=== PATIENT | male | born 1945 | race Caucasian/White ===

== ENCOUNTER 2019-03-30 18:05 | Inpatient (IN) | payer MEDICARE, OTHER ==
[~2019-03-30] VITALS: Ht 182.9 cm; Wt 101.3 kg
[2019-03-30] MEDS ORDERED: NS 1,000 ML IV ONE (18:30)
[2019-03-30] MEDS ORDERED: ACETAMINOPHEN 325 MG TAB PO ONE (18:30)
[2019-03-30 19:06] LABS: BASO % 0.3 % (0.0-1.0); EOS % 0.1 % (0.0-3.0); HEMATOCRIT 45.2 % (42.0-52.0); HEMOGLOBIN 15.7 g/dl (13.5-17.5); LYMPH % 8.9 % (24.0-44.0); MEAN CORPUSCULAR HEMOGLOBIN 30.7 pg (27.0-33.0); MEAN CORPUSCULAR HGB CONC 34.7 g/dl (32.0-36.5); MEAN CORPUSCULAR VOLUME 88.5 fl (80.0-96.0); MONO # 1.1 10^3/uL (0.0-0.8); MONO % 9.8 % (0.0-5.0); NEUTROPHILS % 80.5 % (36.0-66.0); PLATELET COUNT, AUTOMATED 106 10^3/uL (150-450); RED BLOOD COUNT 5.11 10^6/uL (4.30-6.10); WHITE BLOOD COUNT 11.1 10^3/uL (4.0-10.0)
[2019-03-30 19:31] LABS: ERYTHROCYTE SEDIMENTATION RATE 20 mm/hr (0-20)
--- NOTE | 2019-03-30 19:33 | REPVR ---
EXAM: US Duplex Left Lower Extremity Veins, Limited EXAM DATE/TIME: 03/30/2019 6:28 PM CLINICAL HISTORY: 73 years old, male; Pain; Leg, lower; Left; Additional info: R/O dvt. TECHNIQUE: Imaging protocol: Real-time Duplex ultrasound of the Left Lower Extremity with 2-D denny scale, color Doppler flow and spectral waveform analysis. Limited exam focused on the left lower extremity veins. COMPARISON: No relevant prior studies available. FINDINGS: Left deep veins: Unremarkable. The common femoral, femoral, proximal profunda femoral and popliteal veins are patent without thrombus. Normal Doppler waveforms. Normal compressibility and/or augmentation response. Soft tissues: Unremarkable. IMPRESSION: No evidence of deep venous thrombosis in the left lower extremity. Electronically signed by: Galilea Todd On 03/30/2019 19:33:23 PM
[2019-03-30 19:47] LABS: ALBUMIN 3.3 GM/DL (3.2-5.2); BILIRUBIN,DIRECT 0.6 MG/DL (0.0-0.2); BILIRUBIN,TOTAL 1.8 MG/DL (0.2-1.0); C REACTIVE PROTEIN QUANTITATIV 27.5 MG/DL (0.00-0.30); CALCIUM LEVEL 8.1 MG/DL (8.8-10.2); CREATININE FOR GFR 1.66 MG/DL (0.70-1.30); GLOMERULAR FILTRATION RATE 43.2 (>42); POTASSIUM SERUM 3.7 MEQ/L (3.5-5.1); TOTAL PROTEIN 6.5 GM/DL (6.4-8.2)
[2019-03-30] MEDS ORDERED: ceFAZolin SOD 1 GM in D5W MINI-BAG PLUS 50 ML IV ONE (20:00)
[2019-03-30] MEDS ORDERED: NEUR300C PO (20:29)
[2019-03-30] MEDS ORDERED: NAPR-885 PO (20:29)
[2019-03-30] MEDS ORDERED: FLOM0.4C39 PO (20:29)
[2019-03-30] MEDS ORDERED: BRIL90TA PO (20:29)
[2019-03-30] MEDS ORDERED: PRAV40TA2 PO (20:29)
[2019-03-30] MEDS ORDERED: AMBI10TA PO (20:29)
[2019-03-30] MEDS ORDERED: FISH1000 PO (20:29)
[2019-03-30] MEDS ORDERED: OMEP40CA2 PO (20:29)
[2019-03-30] MEDS ORDERED: METO25TA4 PO (20:29)
[2019-03-30] MEDS ORDERED: ASPI81TA26 PO (20:29)
--- NOTE | 2019-03-30 22:22 | REP ---
Left tibia-fibula four views History: Cellulitis There is no acute fracture or dislocation. The joint spaces are normal in appearance. Impression: There is no acute fracture or dislocation. Electronically Signed by Mayur Livingston MD 03/30/2019 10:14 P
--- NOTE | 2019-03-30 22:24 | REP ---
Left foot two views History: Cellulitis There is no acute fracture or dislocation. The joint spaces are normal in appearance. Impression: There is no acute fracture or dislocation. Electronically Signed by Mayur Livingston MD 03/30/2019 10:16 P
[2019-03-30] MEDS ORDERED: FLON1SPR NARES (22:38)
[2019-03-30] MEDS ORDERED: ESSETAB4 PO (22:38)
[2019-03-30] MEDS ORDERED: VANCOMYCIN HCL 1,000 MG, VIAL MATE ADAPTER 1 EACH in D5W 250 ML IV ONE (23:00)
--- NOTE | 2019-03-30 23:26 | HPEPDOC ---
General Date of Admission 03/30/2019 Date of Service: Mar 30, 2019 Other Providers Primary care provider: [facility] Attending Physician: SONIA CABRERA MD Chief Complaint The patient is a 73-year-old male admitted with a reason for visit of Skin Problem. Source: Patient, Old records Exam Limitations: No limitations Associated Symptoms: Chills, Loss of appetite, Rash, Weakness History of Present Illness Mr. Espinoza is a 73-year-old male who presents to [facility]'s Emergency Department with a pain left leg. He states that he thinks he stubbed his toe about a week ago. By Monday night/ morning he started to notice a "hot" painful sensation along his left leg. As long as he kept his leg still the pain was rated at a 4/10. If he would put any of his weight on his leg the pain would be at maximum. By he noticed the redness developing along his left lower leg. He thinks he stubbed his toe inside. He does not recall noticing any ticks on his body and he had not been outside in the [place]. He has been using Aleve and has been sleeping more over the last 2-3 days. He denies using ice packs of soothing lotions. He thinks that his left leg is somewhat swollen and it has a mild numb sensation. He does report chills and subjective fevers, but did not record his temperature. No night sweats. He is not incontinent of urine although he does state that it is painful to urinate and he has to strain. He has a history of BPH. He denies dysuria. He has not had a bowel movement, but states that it is because he has not been eating or drinking all that much. Food is unappetizing. He does not have difficulty or painful swallowing. He does feel weak, but denies falls, dizziness, or lightheadedness. He states that he feels "funky." Incidentally, patient reports that he had a heart attack 3 months ago while he was at the [facility] for a regular appointment. He states that he did not feel right and alerted a nurse. He underwent PCI via his right forearm with one stent placed at [place]. He is unsure of the physician who performed the procedure. He has since followed up at the [facility]. Emergency Department evaluation revealed stable vital signs. He has a mild neutrophilic leukocytosis of 11.1. Lactic acid is normal at 2. Creatinine is elevated at 1.66. Prior values from years ago were normal. Appears to have an indirect hyperbilirubinemia of 1.2. CRP is elevated at 27.5. Blood cultures are pending. Hospitalist service was consulted and patient was admitted for further medical management. Home Medications Scheduled Aspirin (Aspirin EC) 81 Mg Tablet.dr, 81 MG PO DAILY, (Reported) Gabapentin (Neurontin) 300 Mg Capsule, 300 MG PO QHS, (Reported) Metoprolol Tartrate (Metoprolol Tartrate) 25 Mg Tablet, 25 MG PO BID, (Reported) Multivitamin with Folic Acid (One Daily Multivitamin Tablet) 400 Mcg Tablet, 1 TAB PO DAILY, (Reported) [place]-3 Fatty Acids/Fish Oil (Fish Oil 1,000 mg Capsule) 1 Each Capsule, 2,000 MG PO BID, (Reported) Omeprazole (Omeprazole) 40 Mg Capsule.dr, 40 MG PO DAILY, (Reported) Pravastatin Sodium (Pravastatin Sodium) 40 Mg Tablet, 40 MG PO QHS, (Reported) Tamsulosin HCl (Flomax) 0.4 Mg Capsule, 0.4 MG PO DAILY, (Reported) Ticagrelor Base (Brilinta) 90 Mg Tablet, 90 MG PO BID, (Reported) Zolpidem Tartrate (Ambien) 10 Mg Tablet, 10 MG PO QHS, (Reported) Scheduled PRN Fluticasone Propionate (Flonase Allergy Relief) 9.9 Ml [place].susp, 1 SPRAY NARES QHS PRN for CONGESTION, (Reported) Naproxen (Naproxen) 500 Mg Tablet, 500 MG PO DAILY PRN for PAIN OR FEVER, (Reported) Allergies Coded Allergies: No Known Allergies (Unverified , 03/30/19) Past Medical History Medical History 1. CAD s/p PCI x1 stent 2. GERD 3. DLP 4. BPH 5. Insomnia Surgical History 1. PCI x1 stent 2. Cholecystectomy 3. Right hand Dupuytren's contracture 4. Left shoulder distal clavicle excision Family History Father: , 77, heart disease Mother: , 89, lung cancer Siblings - Sisters: x2, , 50 (cancer), 60 (recurrence of polio) Social History * Smoker: former Smoker (32 pack year history; started smoking at age 12; quit at age 44) Alcohol: Denies Drugs: denies Patient lives independently without the use of assist devices. 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 He is . He has two adult sons who are alive and healthy. He has no pets in the home. He is a former smoke, starting at age 12 and quitting at age 44. He used to smoke 1.5 packs per day. He denies EtOH use. He does not use illicit drugs. A-FIB/CHADSVASC A-FIB History Current/History of A-Fib/PAF?: No Review of Systems Constitutional: Reports: Chills, Fever (subjective), Weakness; Denies: Night Sweats Eyes: Denies: Vision change, Conjunctivae inflammation, Eyelid inflammation ENT: Reports: Other Symptoms (decreased appetite); Denies: Head Aches, Dysphagia, Sinus Congestion, Post Nasal Drip, Sore Throat, Epistaxis Skin: Reports: Rash (left leg), Bruising (left leg) Pulmonary: Reports: Dyspnea (with minimal exertion); Denies: Cough, Pleuritic Chest Pain Cardiovascular: Reports: Edema (left leg); Denies: Chest Pain, Palpitations, Orthopnea, Paroxysmal Noc. Dyspnea, Lt Headedness Gastrointestinal: Reports: Constipation (from decreased appetite); Denies: Nausea, Vomiting, Abdominal Pain, Diarrhea, Melena, Hematochezia Genitourinary: Reports: Other Symptoms (difficulty initiating urinary stream); Denies: Dysuria, Frequency, Incontinence, Hematuria, Retention Hematologic: Reports: Bruising (left leg) Musculoskeletal: Reports: Leg Pain (left leg); Denies: Neck Pain, Back Pain, Joint Pain, Muscle Pain Neurological: Reports: Weakness, Numbness (left leg) Physical Examination General Exam: Positive: Alert, Cooperative, Other (hesitant in speech) Eye Exam: Positive: PERRLA, Conjunctiva & lids normal, EOMI, Other Eye Symptoms (wears spectacles); Negative: Sclera icteric, Ptosis ENT Exam: Positive: Atraumatic, Mucous membr. moist/pink, Pharynx Normal, Tongue Midline, Nares Patent; Negative: Pharyngeal Edema Neck Exam: Positive: Supple, +2 carotid pulse wo bruit; Negative: JVD, thyromegaly, Lymphadenopathy Chest Exam: Positive: Clear to auscultation, Normal air movement; Negative: Rales, Rhonchi, Wheezing, Diminished Heart Exam: Positive: Rate Normal, Regular Rhythm, Normal S1, Normal S2; Negative: Gallops, Murmurs, Rubs Abdomen Exam: Positive: BS Hypoactive, Soft, Other (round, no guarding, no rebound); Negative: Tenderness, Hepatospenomegaly, Mass, Hernia Extremity Exam: Positive: Edema (mild trace edema, LLE), Normal pulses, Tenderness (to palpation), Other (extensive ecchymoses noted along anterior varela of LLE with surrounding spreading erythema circumferentially around LLE extending up into medial and lateral thigh; no abnormality noted to toe digits, no abrasions); Negative: Clubbing, Cyanosis Skin Exam: Positive: Rash (as noted above; no drainage); Negative: Nl turgor and temperature (LLE warm to the palpation) Neuro Exam: Negative: Normal Speech (hesitant, apprehensive speech) Other physical findings 1. Left lower extremity duplex ultrasound - No evidence of deep venous thrombosis in the left lower extremity. 2. Left tibia/fibula x-ray - No evidence of deep venous thrombosis in the left lower extremity. 3. Left AP/lateral foot x-ray - There is no acute fracture or dislocation. Vital Signs Vital Signs Date Time Temp Pulse Resp B/P (MAP) Pulse Ox O2 Delivery O2 Flow Rate FiO2 03/30/19 20:44 96.8 73 20 117/60 (79) 96 Room Air Height (in): 72 Weight (kg): 102.27 BMI (kg): 30.6 Laboratory Data Labs 24H Laboratory Tests 2 03/30/19 18:44: Immature Granulocyte % (Auto) 0.4, White Blood Count 11.1H, Red Blood Count 5.11, Hemoglobin 15.7, Hematocrit 45.2, Mean Corpuscular Volume 88.5, Mean Corpuscular Hemoglobin 30.7, Mean Corpuscular Hemoglobin Concent 34.7, Red Cell Distribution Width 11.7, Platelet Count 106L, Neutrophils (%) (Auto) 80.5H, Lymphocytes (%) (Auto) 8.9L, Monocytes (%) (Auto) 9.8H, Eosinophils (%) (Auto) 0.1, Basophils (%) (Auto) 0.3, Neutrophils # (Auto) 9.0H, Lymphocytes # (Auto) 1.0L, Monocytes # (Auto) 1.1H, Eosinophils # (Auto) 0.0, Basophils # (Auto) 0.0, Nucleated Red Blood Cells % (auto) 0.0, Erythrocyte Sedimentation Rate 20, Anion Gap 12, Glomerular Filtration Rate 43.2, Lactic Acid Level 2.0, Calcium Level 8.1L, Aspartate Amino Transf (AST/SGOT) 46H, Alanine Aminotransferase (ALT/SGPT) 33, Alkaline Phosphatase 69, Total Bilirubin 1.8H, Direct Bilirubin 0.6H, C- Reactive Protein, Quantitative 27.50H, Total Protein 6.5, Albumin 3.3, Albumin/Globulin Ratio 1.03 CBC/BMP Laboratory Tests 03/30/19 18:44 Red Blood Count 5.11, Mean Corpuscular Volume 88.5, Mean Corpuscular Hemoglobin 30.7, Mean Corpuscular Hemoglobin Concent 34.7, Red Cell Distribution Width 11.7, Neutrophils (%) (Auto) 80.5 H, Lymphocytes (%) (Auto) 8.9 L, Monocytes (%) (Auto) 9.8 H, Eosinophils (%) (Auto) 0.1, Basophils (%) (Auto) 0.3, Neutrophils # (Auto) 9.0 H, Lymphocytes # (Auto) 1.0 L, Monocytes # (Auto) 1.1 H, Eosinophils # (Auto) 0.0, Basophils # (Auto) 0.0 Microbiology Microbiology 03/30/19 Blood Culture, Received Pending 03/30/19 Blood Culture, Received Pending Plan / VTE VTE Prophylaxis Ordered?: Yes (TEDs, ASA, Brilinta) Plan Plan 1. Left leg pain 2/2 cellulitis with lymphangitis R/O necrotizing fasciitis Aggressive antibiotic therapy with Vancomycin and Zosyn (empirically treating for necrotizing fasciitis; suspicious physical examination) MRI LLE femur and tibia/fibula Blood cultures pending Procalcitonin ordered NS @ 125 mLs/hr Monitor labs and VS Elevated CRP; ordered ESR Tylenol and Percocet as needed for pain control 2. Acute kidney injury 2/2 dehydration NS @ 125 mLs/hr Monitor daily labs 3. CAD s/p PCI x1 stent Continue ASA and Brilinta Continue Metoprolol, Pravastatin PCU monitoring (without telemetry for the time-being) Patient was taking NSAIDs at home; this has been discouraged as it puts patient at increased risk of bleeding since he is on DAPT 4. BPH Continue Tamsulosin Disposition Admit: PCU Anticipated hospitalization: 2 nights IVF: Initiate (NS @ 100 mLs/hr) Diet: Continue Current (2g sodium) Activity: Continue Current (bedrest with bathroom privileges) Therapy: PT Medications: Start Antibiotics (Vancomycin 1gm IV, Zosyn 4.5mg IV Q8H) Diagnostics: Check Labs, Repeat Labs in AM, Obtain Cultures (blood), MRI (LLE - femur, tibia/fibula) Anticipated Discharge: Home GME ATTESTATION GME ATTESTATION My faculty preceptor for this patient encounter was physically present during the encounter and was fully available. All aspects of the patient interview, examination, medical decision making process, and medical care plan development were reviewed and approved by the faculty preceptor. The faculty preceptor is aware and concurs with the plan as stated in the body of this note and will attest to such by his/her cosignature. ATTENDING NOTE ATTENDING ATTESTATION: I performed a history and physical examination of the patient and discuss the management with the resident/INFORMATION TECHNOLOGY ARCHITECT. I reviewed the resident's note and agree with the documented findings and plan of care. THOMAS GILLESPIE DO Mar 30, 2019 23:26 SONIA CABRERA MD Mar 31, 2019 01:37
[2019-03-30] MEDS ORDERED: FLUTICASONE PROP 0.05% NASAL SPRAY 16 GM (FLONASE) NARES PRN (23:30)
[2019-03-30] MEDS: GABAPENTIN 300 MG CAP PO SCH (23:40)
[2019-03-30] MEDS: PRAVASTATIN 20 MG TAB PO SCH (23:40)
[2019-03-30] MEDS: METOPROLOL TART 25 MG TABLET PO SCH (23:40)
[2019-03-31] MEDS: TICAGRELOR 90 MG TABLET (BRILINTA) PO SCH ×3 (00:08→20:40)
--- NOTE | 2019-03-31 00:14 | PHACANCOPD ---
PHARMACY VANCOMYCIN DOSING Pt Demographics Demographics Patient Age:73 , Weight:102.27 , Gender: male Adjusted Body Weight Date: 03/31/19, Adjusted Body Weight: Kg Events Past 24 Hours Events Past 24 Hours: NO: Dialysis, Diuretic Therapy, Change in CrCl, Fever, Elevation in WBC, Pending Diagnostics, Pending Procedures, Other Vancomycin Vancomycin Target Ranges: 15-20 mcg/ml Vancomycin Load Y/N: Yes Load Dose Date Time Vancomycin Load Dose: 2000mg Date: 03-31 Time: 0200 Vancomycin Dose Date: 03/31/19. Current Vancomycin Dose: [1000mg q8h] Intermittent Dosing?: No Labs Labs Item Value Date Time White Blood Count 11.1 10^3/uL H 03/30/19 1844 Glomerular Filtration Rate 43.2 03/30/19 1844 Creatinine 1.66 MG/DL H 03/30/19 1844 Blood Urea Nitrogen 24 MG/DL H 03/30/19 1844 Vital Signs Label Value Date Time Patient Temperature 99.3 degrees F 03/30/19 2345 Temperature Source Oral 03/30/19 2345 Micro Microbiology 03/30/19 Blood Culture, Received Pending 03/30/19 Blood Culture, Received Pending Creatinine Clearance Date:03/31/19. Creatinine Clearance: [~40]. Pending Labs Trough 03-31 @1700 Assessment and Plan Maintaining Current Dose?: Yes Reason for dose change: No Dose Change Pharmacist Note Pharmacist Note Date: 03/31/19. Pharmacist note:Will monitor and make adjustments as needed. KELLEY TAYLOR PHARMACY Mar 31, 2019 00:14
[2019-03-31] MEDS ORDERED: VANCOMYCIN HCL 1,000 MG, VIAL MATE ADAPTER 1 EACH in D5W 250 ML IV SCH (02:00)
[2019-03-31 03:05] VITALS: BP 131/64
[2019-03-31] MEDS: NS 1,000 ML IV SCH ×3 (03:22→20:40)
[2019-03-31] MEDS: ACETAMINOPHEN TAB 650MG DOSE (2X325MG) PO PRN (03:23)
--- NOTE | 2019-03-31 03:35 | REPVR ---
EXAM: MR Left Lower Extremity Without Contrast, Tibia Fibula EXAM DATE/TIME: 03/31/2019 2:56 AM CLINICAL HISTORY: 73 years old, male; Signs and symptoms; Cellulitis and difficulty in walking; Lower leg and thigh; Left; Patient HX: PT states stubbed 3rd toe a week ago and now has fever and redness going up left leg. On femur its more on the inside of lateral femur up to groin, PT refused contrast portion of exam due to to much back pain and refused meds when given the option; Additional info: ? Necrotizing fasciitis TECHNIQUE: Imaging protocol: MR of the Left tibia fibula without intravenous contrast. COMPARISON: CR Tibia, Fibula lower leg LEFT 03/30/2019 8:07 PM FINDINGS: Bones/joints: The left tibia and fibula are intact and demonstrate normal signal. There is no fracture, stress fracture, or varela splints. There are no bony destructive changes, cortical erosions, bone marrow edema, or periostitis to suggest osteomyelitis. Soft tissues: There is edema in the subcutaneous tissues around the left calf, predominantly anteriorly, which is compatible with cellulitis. No drainable soft tissue fluid collection is noted to suggest an abscess. There is no fluid in the intermuscular fascial planes, thickening of the deep fascial planes, or gas in the soft tissues to suggest necrotizing fasciitis. The imaged muscles are intact and demonstrate normal signal. The left Achilles tendon and left popliteus tendon are intact. No left popliteal cyst is present. IMPRESSION: 1. Cellulitis in the left calf. 2. No evidence for an abscess, necrotizing fasciitis, or osteomyelitis in the left calf. Electronically signed by: Armando Benitez On 03/31/2019 03:34:50 AM
--- NOTE | 2019-03-31 03:42 | REPVR ---
EXAM: MR Left Lower Extremity Without Contrast, Femur EXAM DATE/TIME: 03/31/2019 2:56 AM CLINICAL HISTORY: 73 years old, male; Pain and signs and symptoms; Cellulitis and difficulty in walking; Lower leg and thigh; Left; Patient HX: PT states stubbed 3rd toe a week ago and now has fever redness going up leftt leg. On femur its more on the inside of femur up to groin, PT refused contrast portion of exam due to to much back pain and refused meds when given the option; Additional info: ? Necrotizing fasciitis TECHNIQUE: Imaging protocol: MR of the Left femur without intravenous contrast. COMPARISON: CR Tibia, Fibula lower leg LEFT 03/30/2019 8:07 PM FINDINGS: Bones/joints: The imaged portion of the left femur is intact and demonstrates normal bone marrow signal. There is no fracture or dislocation. There is a trace left knee joint effusion. There are no bony destructive changes, cortical erosions, bone marrow edema, or periostitis to suggest osteomyelitis. Soft tissues: There is edema in the subcutaneous tissues in the left groin and anterior aspect of the left upper thigh tracking medially along the mid to distal portion of the left thigh. No drainable soft tissue fluid collection is noted to suggest an abscess. There is no fluid in the intermuscular fascial planes, thickening of the deep fascial planes, or gas in the soft tissues to suggest necrotizing fasciitis. Other findings: There are small bilateral hydroceles in the scrotal sacs. The prostate gland is heterogeneous in appearance. The prostate gland was not fully imaged. IMPRESSION: 1. Cellulitis involving the left groin and left thigh. 2. No evidence for an abscess, necrotizing fasciitis, or osteomyelitis in the left thigh. Electronically signed by: Armando Benitez On 03/31/2019 03:42:33 AM
[2019-03-31] MEDS ORDERED: PIPERACILLIN/TAZOBACTAM SOD 4.5 GM in D5W MINI-BAG PLUS 50 ML IV SCH (04:00)
[2019-03-31 05:46] LABS: HEMATOCRIT 40.7 % (42.0-52.0); HEMOGLOBIN 14.1 g/dl (13.5-17.5); MEAN CORPUSCULAR HEMOGLOBIN 30.5 pg (27.0-33.0); MEAN CORPUSCULAR HGB CONC 34.6 g/dl (32.0-36.5); MEAN CORPUSCULAR VOLUME 87.9 fl (80.0-96.0); PLATELET COUNT, AUTOMATED 102 10^3/uL (150-450); RED BLOOD COUNT 4.63 10^6/uL (4.30-6.10); WHITE BLOOD COUNT 10.8 10^3/uL (4.0-10.0)
[2019-03-31 06:23] LABS: ALBUMIN 2.5 GM/DL (3.2-5.2); BILIRUBIN,TOTAL 1.5 MG/DL (0.2-1.0); C REACTIVE PROTEIN QUANTITATIV 25.8 MG/DL (0.00-0.30); CALCIUM LEVEL 7.4 MG/DL (8.8-10.2); CREATININE FOR GFR 1.43 MG/DL (0.70-1.30); ERYTHROCYTE SEDIMENTATION RATE 35 mm/hr (0-20); GLOMERULAR FILTRATION RATE 51.3 (>42); POTASSIUM SERUM 3.6 MEQ/L (3.5-5.1); TOTAL PROTEIN 6.1 GM/DL (6.4-8.2)
[2019-03-31 08:00] VITALS: BP 131/68
[2019-03-31] MEDS: TAMSULOSIN 0.4 MG CAP PO SCH (09:13)
[2019-03-31] MEDS: ASPIRIN 81 MG ENTERIC TAB PO SCH (09:13)
[2019-03-31] MEDS: OMEPRAZOLE 20 MG CAP PO SCH (09:13)
[2019-03-31] MEDS: METOPROLOL TART 25 MG TABLET PO SCH ×2 (09:14→20:41)
[2019-03-31 12:00] VITALS: BP 125/57
[2019-03-31] MEDS: PERCOCET 5MG/325MG TAB PO PRN (12:11)
--- NOTE | 2019-03-31 14:09 | IPNPDOC ---
Subjective Date Seen The patient was seen on 03/31/19. Subjective Chief Complaint/HPI Has some pain in damion left leg but less than yesterday . Does not have any problem walking. No fever or chills, no chest pain or sob. Objective Physical Examination General Exam: Positive: Alert, Cooperative, Other (hesitant in speech) Eye Exam: Positive: PERRLA, Conjunctiva & lids normal, EOMI, Other Eye Symptoms (wears spectacles); Negative: Sclera icteric, Ptosis ENT Exam: Positive: Atraumatic, Mucous membr. moist/pink, Pharynx Normal, Tongue Midline, Nares Patent; Negative: Pharyngeal Edema Neck Exam: Positive: Supple, +2 carotid pulse wo bruit; Negative: JVD, thyromegaly, Lymphadenopathy Chest Exam: Positive: Clear to auscultation, Normal air movement; Negative: Rales, Rhonchi, Wheezing, Diminished Heart Exam: Positive: Rate Normal, Regular Rhythm, Normal S1, Normal S2; Negative: Gallops, Murmurs, Rubs Abdomen Exam: Positive: BS Hypoactive, Soft, Other (round, no guarding, no rebound); Negative: Tenderness, Hepatospenomegaly, Mass, Hernia Extremity Exam: Positive: Edema (mild trace edema, LLE), Normal pulses, Tende rness (to palpation), Other (extensive ecchymoses noted along anterior varela of LLE with surrounding spreading erythema circumferentially around LLE extending up into medial and lateral thigh; no abnormality noted to toe digits, no abrasions); Negative: Clubbing, Cyanosis Skin Exam: Positive: Rash (as noted above; no drainage); Negative: Nl turgor and temperature (LLE warm to the palpation) Neuro Exam: Negative: Normal Speech (hesitant, apprehensive speech) Assessment /Plan Assessment Mr. Espinoza is a 73-year-old male with PMH of CAD s/p stents 3 months ago, BPH, Hyperlipidemia, Neuropathy, GERD who presents to [facility] Emergency Department with a pain left leg redness and swelling extending up to the groin. He was admitted for Cellulitis Left leg cellulitis with lymphangitis No necrotizing fascitis in MRI MRI LLE femur and tibia/fibula negative for any necrotizing fascitis. continue Ceftriaxone. Blood cultures pending Procalcitonin ordered Tylenol and Percocet as needed for pain control Acute kidney injury 2/2 dehydration improved. CAD s/p PCI x1 stent Continue ASA and Brilinta Continue Metoprolol, Pravastatin BPH Continue Tamsulosin GERD continue PPI. Plan/VTE VTE Prophylaxis Ordered?: Yes (TEDs, ASA, Brilinta) Plan Diet: Continue Current (2g sodium) Activity: Continue Current (bedrest with bathroom privileges) Therapy: PT Diagnostics: Repeat Labs in AM Anticipated Discharge: Home VS, I&O, 24H, [facility] Vital Signs/I&O Vital Signs Date Time Temp Pulse Resp B/P (MAP) Pulse Ox O2 Delivery O2 Flow Rate FiO2 03/31/19 12:11 18 03/31/19 12:00 99.3 79 125/57 (79) 98 03/31/19 02:53 Room Air I&O- Last 24 Hours up to 6 AM 03/31/19 06:00 Intake Total 1620 ml Output Total 300 ml Balance 1320 ml Laboratory Data 24H LABS Laboratory Tests 2 03/30/19 18:44: Immature Granulocyte % (Auto) 0.4, White Blood Count 11.1H, Red Blood Count 5.11, Hemoglobin 15.7, Hematocrit 45.2, Mean Corpuscular Volume 88.5, Mean Corpuscular Hemoglobin 30.7, Mean Corpuscular Hemoglobin Concent 34.7, Red Cell Distribution Width 11.7, Platelet Count 106L, Neutrophils (%) (Auto) 80.5H, Lymphocytes (%) (Auto) 8.9L, Monocytes (%) (Auto) 9.8H, Eosinophils (%) (Auto) 0.1, Basophils (%) (Auto) 0.3, Neutrophils # (Auto) 9.0H, Lymphocytes # (Auto) 1.0L, Monocytes # (Auto) 1.1H, Eosinophils # (Auto) 0.0, Basophils # (Auto) 0.0, Nucleated Red Blood Cells % (auto) 0.0, Erythrocyte Sedimentation Rate 20, Anion Gap 12, Glomerular Filtration Rate 43.2, Lactic Acid Level 2.0, Calcium Level 8.1L, Aspartate Amino Transf (AST/SGOT) 46H, Alanine Aminotransferase (ALT/SGPT) 33, Alkaline Phosphatase 69, Total Bilirubin 1.8H, Direct Bilirubin 0.6H, C- Reactive Protein, Quantitative 27.50H, Total Protein 6.5, Albumin 3.3, Albumin/Globulin Ratio 1.03 03/31/19 05:07: Nucleated Red Blood Cells % (auto) 0.0, Erythrocyte Sedimentation Rate 35H, Anion Gap 10, Glomerular Filtration Rate 51.3, Calcium Level 7.4L, Aspartate Amino Transf (AST/SGOT) 44H, Alanine Aminotransferase (ALT/SGPT) 31, Alkaline Phosphatase 61, Total Bilirubin 1.5H, C-Reactive Protein, Quantitative 25.80H, Total Protein 6.1L, Albumin 2.5#L, Albumin/Globulin Ratio 0.69L, Blood Urea Nitrogen 27H, Creatinine 1.43H, Sodium Level 139, Potassium Level 3.6, Chloride Level 106, Carbon Dioxide Level 23 CBC/BMP Laboratory Tests 03/30/19 18:44 Red Blood Count 5.11, Mean Corpuscular Volume 88.5, Mean Corpuscular Hemoglobin 30.7, Mean Corpuscular Hemoglobin Concent 34.7, Red Cell Distribution Width 11.7, Neutrophils (%) (Auto) 80.5 H, Lymphocytes (%) (Auto) 8.9 L, Monocytes (%) (Auto) 9.8 H, Eosinophils (%) (Auto) 0.1, Basophils (%) (Auto) 0.3, Neutrophils # (Auto) 9.0 H, Lymphocytes # (Auto) 1.0 L, Monocytes # (Auto) 1.1 H, Eosinophils # (Auto) 0.0, Basophils # (Auto) 0.0 03/31/19 05:07 Red Blood Count 4.63, Mean Corpuscular Volume 87.9, Mean Corpuscular Hemoglobin 30.5, Mean Corpuscular Hemoglobin Concent 34.6, Red Cell Distribution Width 11.9, Calcium Level 7.4 L, Aspartate Amino Transf (AST/SGOT) 44 H, Alanine Aminotransferase (ALT/SGPT) 31, Alkaline Phosphatase 61, Total Bilirubin 1.5 H, Total Protein 6.1 L, Albumin 2.5 #L Microbiology Microbiology 03/30/19 Blood Culture, Received Pending 03/30/19 Blood Culture, Received Pending JERAMY CHUA MD Mar 31, 2019 14:08
[2019-03-31 16:19] VITALS: BP 130/62
[2019-03-31] MEDS: PRAVASTATIN 20 MG TAB PO SCH (20:40)
[2019-03-31] MEDS: GABAPENTIN 300 MG CAP PO SCH (20:40)
[2019-03-31] MEDS: cefTRIAXone SOD 2 GM in D5W MINI-BAG PLUS 50 ML IV SCH (20:41)
[2019-03-31] MEDS ORDERED: cefTRIAXone SOD 1 GM in D5W MINI-BAG PLUS 50 ML IV SCH (21:00)
[2019-03-31 22:00] VITALS: BP 157/78
[2019-04-01] MEDS: NS 1,000 ML IV SCH (05:12)
[2019-04-01 06:00] VITALS: BP 111/60
[2019-04-01 06:06] LABS: HEMATOCRIT 36.5 % (42.0-52.0); HEMOGLOBIN 12.6 g/dl (13.5-17.5); MEAN CORPUSCULAR HGB CONC 34.5 g/dl (32.0-36.5); MEAN CORPUSCULAR VOLUME 86.9 fl (80.0-96.0); PLATELET COUNT, AUTOMATED 127 10^3/uL (150-450)
[2019-04-01 06:31] LABS: ALBUMIN 2.4 GM/DL (3.2-5.2); ALT/SGPT 32 U/L (12-78); BLOOD UREA NITROGEN 16 MG/DL (7-18); CALCIUM LEVEL 7.9 MG/DL (8.8-10.2); CARBON DIOXIDE LEVEL 23 MEQ/L (21-32); CHLORIDE LEVEL 110 MEQ/L (98-107); CREATININE FOR GFR 1.05 MG/DL (0.70-1.30); GLOMERULAR FILTRATION RATE > 60.0 (>42); GLUCOSE, FASTING 101 MG/DL (70-100); POTASSIUM SERUM 3.3 MEQ/L (3.5-5.1); SODIUM LEVEL 141 MEQ/L (136-145); TOTAL PROTEIN 5.9 GM/DL (6.4-8.2)
[2019-04-01] MEDS ORDERED: POTASSIUM CHLORIDE 10 MEQ SR TABLET PO ONE (08:00)
[2019-04-01] MEDS: ASPIRIN 81 MG ENTERIC TAB PO SCH (08:33)
[2019-04-01] MEDS: OMEPRAZOLE 20 MG CAP PO SCH (08:33)
[2019-04-01] MEDS: TICAGRELOR 90 MG TABLET (BRILINTA) PO SCH ×2 (08:33→21:11)
[2019-04-01] MEDS: TAMSULOSIN 0.4 MG CAP PO SCH (08:33)
[2019-04-01] MEDS: METOPROLOL TART 25 MG TABLET PO SCH ×2 (08:34→21:12)
--- NOTE | 2019-04-01 10:34 | IPNPDOC ---
Date Seen The patient was seen on 04/01/19. Progress Note SUBJECTIVE: Patient is a 73-year-old male with LLE cellulitis and lymphangitis. Patient is evaluated at bedside this morning. He states that he thinks his left leg is getting more swollen and looks much bigger than his right leg. He does admits to shortness of breath, but is able to communicate without noted breathlessness. He denies chest pain, fever, night sweats, chills. OBJECTIVE PHYSICAL EXAMINATION: VITAL SIGNS: Please see below. GENERAL: Well nourished, well developed male, alert and conversant, answers questions appropriately, no acute distress. HEENT: Atraumatic, normocephalic, PERRL, EOMI, oral mucosa appears pink and moist, nasal septum appears midline, nares are patent, wears spectacles. CARDIOVASCULAR: Regular rate and rhythm, normal S1 and S2, no murmur, rub, click. RESPIRATORY: Clear to auscultation bilaterally, adequate inspiratory and expira tory airway excursion, no focal consolidations, no wheeze, rhonchi, crackles. ABDOMINAL: Soft, non-tender, non-distended. EXTREMITIES: Circumferential erythema with ecchymosis noted on left lower leg extending into the medial thigh, improvement noted from demarcation line drawn on skin, +2 pitting edema noted around the left ankle most prominently, pulses are palpated in the LLE and RLE. NEUROLOGICAL: CN II-XII grossly intact. PSYCHOLOGICAL: Mood and affect appropriate. LABORATORY DATA, IMAGING STUDIES, MICROBIOLOGY: Please see below. DVT prophylaxis ordered?: ASA and Brilinta, TEDs on RLE. ASSESSMENT AND PLAN: This is a 73-year-old male with LLE cellulitis and lymphangitis. PROBLEMS: 1. LLE cellulitis with lymphangitis Necrotizing fasciitis ruled out with MRI C/W Ceftriaxone 2gm IV Q24H Tylenol and Percocet as needed for pain LLE duplex US ordered Activity as tolerated in order to participate with PT D/C IVF; patient may eat and drink to his thirst CRP remains elevated Increasing leukocytosis; however, VS stable, afebrile; monitor for the time- being Blood cultures pending Procalcitonin pending 2. Electrolyte abnormality K 3.3 Repleted with Potassium chloride 40mEq PO x1 3. Acute kidney injury Resolved Creatinine 1.05 D/C IVF 4. CAD s/p PCI x1 stent C/W ASA, Brilinta C/W Pravastatin, Metoprolol 5. BPH C/W Tamsulosin DISPOSITION: Duplex US LLE. Pending clinical improvement. Attending Note I have examined the patient and discussed the plan of care with the resident. I agree with the resident's documentation with the following addendum: pateint's leg and thigh looks worse today inflammation seems to have increased inspitw of being on ceftriaxone of the past 48 hours. Will expand coverage and add vancomycin VS, I&O, 24H, Fishbone Vital Signs/I&O Vital Signs Date Time Temp Pulse Resp B/P (MAP) Pulse Ox O2 Delivery O2 Flow Rate FiO2 04/01/19 08:34 79 111/60 04/01/19 06:00 98.4 19 93 03/31/19 02:53 Room Air I&O- Last 24 Hours up to 6 AM 04/01/19 06:00 Intake Total 3320 ml Output Total 325 ml Balance 2995 ml Laboratory Data 24H LABS Laboratory Tests 2 04/01/19 05:46: Nucleated Red Blood Cells % (auto) 0.0, Anion Gap 8, Glomerular Filtration Rate > 60.0, Blood Urea Nitrogen 16, Creatinine 1.05, Sodium Level 141, Potassium Level 3.3L, Chloride Level 110H, Carbon Dioxide Level 23, Calcium Level 7.9L, Aspartate Amino Transf (AST/SGOT) 41H, Alanine Aminotransferase (ALT/SGPT) 32, Alkaline Phosphatase 70, Total Bilirubin 1.0, Total Protein 5.9L, Albumin 2.4L, C-Reactive Protein, Quantitative 26.70H, Albumin/Globulin Ratio 0.69L CBC/BMP Laboratory Tests 04/01/19 05:46 Red Blood Count 4.20 L, Mean Corpuscular Volume 86.9, Mean Corpuscular Hemoglobin 30.0, Mean Corpuscular Hemoglobin Concent 34.5, Red Cell Distribution Width 11.9, Calcium Level 7.9 L, Aspartate Amino Transf (AST/SGOT) 41 H, Alanine Aminotransferase (ALT/SGPT) 32, Alkaline Phosphatase 70, Total Bilirubin 1.0, Total Protein 5.9 L, Albumin 2.4 L Microbiology Microbiology 03/30/19 Blood Culture - Preliminary, Resulted No growth after 24 hours . All specim... 03/30/19 Blood Culture - Preliminary, Resulted No growth after 24 hours . All specim... THOMAS GILLESPIE DO Apr 01, 2019 10:34 JERAMY CHUA MD Apr 01, 2019 23:45
--- NOTE | 2019-04-01 13:17 | REP ---
Left lower extremity Duplex Doppler venous ultrasound: Real time compression and duplex Doppler interrogation of the left lower extremity deep venous system is performed. The left common femoral, superficial femoral and popliteal veins are fully compressible with transducer pressure and demonstrate normal spontaneous and phasic flow, without evidence of deep venous thrombosis. Impression: No evidence of deep venous thrombosis of the left lower extremity femoral popliteal venous system. Electronically Signed by Atul Peter MD 04/01/2019 01:08 P
[2019-04-01 14:00] VITALS: BP 128/72
--- NOTE | 2019-04-01 15:34 | PHACANCOPD ---
PHARMACY VANCOMYCIN DOSING Pt Demographics Demographics Patient Age:73 , Weight:103.200 , Gender: male Adjusted Body Weight Date: 03/31/19, Adjusted Body Weight: Kg Events Past 24 Hours Events Past 24 Hours: YES: Elevation in WBC; NO: Dialysis, Diuretic Therapy, Change in CrCl, Fever, Pending Diagnostics, Pending Procedures, Other Vancomycin Vancomycin indication: CELLULITIS Vancomycin Target Ranges: 15-20 mcg/ml Vancomycin Load Y/N: Yes Load Dose Date Time Vancomycin Load Dose: 2000mg Date: 03-31 Time: 0200 Vancomycin Dose Date: 04/01/19. Current Vancomycin Dose: [1250MG IV Q12H@16] Date: 03/31/19. Current Vancomycin Dose: [1000mg q8h] Intermittent Dosing?: No Labs Labs Vital Signs Label Value Date Time Patient Temperature 98.7 degrees F 04/01/19 1400 Temperature Source Temporal 04/01/19 1400 Item Value Date Time Erythrocyte Sedimentation Rate 35 mm/hr H 03/31/19 0507 White Blood Count 11.1 10^3/uL H 03/30/19 1844 White Blood Count 10.8 10^3/uL H 03/31/19 0507 White Blood Count 13.0 10^3/uL H 04/01/19 0546 C-Reactive Protein, Quantitative 27.50 MG/DL H 03/30/19 1844 C-Reactive Protein, Quantitative 25.80 MG/DL H 03/31/19 0507 C-Reactive Protein, Quantitative 26.70 MG/DL H 04/01/19 0546 Micro Microbiology 03/30/19 Blood Culture - Preliminary, Resulted No growth after 24 hours . All specim... 03/30/19 Blood Culture - Preliminary, Resulted No growth after 24 hours . All specim... Creatinine Clearance Date:03/31/19. Creatinine Clearance: [~40]. Pending Labs Trough 03-31 @1700 Assessment and Plan Maintaining Current Dose?: Yes Reason for dose change: No Dose Change Pharmacist Note Pharmacist Note 04/01: Patient was admitted for cellulitis with lymphangitis. He was originally started on Vancomycin and Zosyn for suspicion of necrotizing fasciitis, which has since been ruled out. He was deescalated to Rocephin but since has had an increase in WBC and CRP has remained elevated. Vancomycin was added back today. Patient has no history of MRSA or Vancomycin use prior to this admission. Patient received a 2000mg load of Vancomycin on 03/31 around midnight then the Vancomycin stopped. He was continued today on Vancomycin 1250mg IV q12h. Upon admission patient had LEENA so we will monitor his kidney function closely, and make adjustments as necessary. Date: 03/31/19. Pharmacist note:Will monitor and make adjustments as needed. MIRANDA FITZGERALD PHARMACY Apr 01, 2019 15:34
[2019-04-01] MEDS: VANCOMYCIN HCL 500 MG in D5W MINI-BAG PLUS 100 ML IV SCH (15:58)
[2019-04-01] MEDS ORDERED: VANCOMYCIN HCL 1,000 MG, VIAL MATE ADAPTER 1 EACH in D5W 250 ML IV SCH (16:00)
[2019-04-01] MEDS: VANCOMYCIN HCL 750 MG, VIAL MATE ADAPTER 1 EACH in D5W 250 ML IV SCH (17:22)
[2019-04-01] MEDS: cefTRIAXone SOD 2 GM in D5W MINI-BAG PLUS 50 ML IV SCH (21:11)
[2019-04-01] MEDS: GABAPENTIN 300 MG CAP PO SCH (21:11)
[2019-04-01] MEDS: PERCOCET 5MG/325MG TAB PO PRN (21:12)
[2019-04-01] MEDS: PRAVASTATIN 20 MG TAB PO SCH (21:12)
[2019-04-01 22:00] VITALS: BP 150/80
[2019-04-02] MEDS: VANCOMYCIN HCL 500 MG in D5W MINI-BAG PLUS 100 ML IV SCH ×2 (04:22→15:37)
[2019-04-02] MEDS: VANCOMYCIN HCL 750 MG, VIAL MATE ADAPTER 1 EACH in D5W 250 ML IV SCH ×2 (05:46→16:35)
[2019-04-02 06:00] VITALS: BP 141/79
[2019-04-02 06:42] LABS: HEMATOCRIT 36.4 % (42.0-52.0); HEMOGLOBIN 12.4 g/dl (13.5-17.5); MEAN CORPUSCULAR HEMOGLOBIN 29.7 pg (27.0-33.0); MEAN CORPUSCULAR HGB CONC 34.1 g/dl (32.0-36.5); MEAN CORPUSCULAR VOLUME 87.1 fl (80.0-96.0); PLATELET COUNT, AUTOMATED 147 10^3/uL (150-450); RED BLOOD COUNT 4.18 10^6/uL (4.30-6.10); WHITE BLOOD COUNT 10.6 10^3/uL (4.0-10.0)
[2019-04-02 07:38] LABS: ALBUMIN 2.1 GM/DL (3.2-5.2); ALT/SGPT 38 U/L (12-78); BILIRUBIN,TOTAL 0.8 MG/DL (0.2-1.0); BLOOD UREA NITROGEN 14 MG/DL (7-18); CALCIUM LEVEL 7.6 MG/DL (8.8-10.2); CARBON DIOXIDE LEVEL 25 MEQ/L (21-32); CHLORIDE LEVEL 110 MEQ/L (98-107); CREATININE FOR GFR 1.05 MG/DL (0.70-1.30); GLOMERULAR FILTRATION RATE > 60.0 (>42); GLUCOSE, FASTING 99 MG/DL (70-100); POTASSIUM SERUM 3.3 MEQ/L (3.5-5.1); SODIUM LEVEL 142 MEQ/L (136-145); TOTAL PROTEIN 5.8 GM/DL (6.4-8.2)
[2019-04-02] MEDS: METOPROLOL TART 25 MG TABLET PO SCH ×2 (08:48→21:08)
[2019-04-02] MEDS: OMEPRAZOLE 20 MG CAP PO SCH (08:48)
[2019-04-02] MEDS: ASPIRIN 81 MG ENTERIC TAB PO SCH (08:48)
[2019-04-02] MEDS: TICAGRELOR 90 MG TABLET (BRILINTA) PO SCH ×2 (08:48→21:07)
[2019-04-02] MEDS: TAMSULOSIN 0.4 MG CAP PO SCH (08:48)
[2019-04-02] MEDS ORDERED: POTASSIUM CHLORIDE 10 MEQ SR TABLET PO ONE (11:00)
--- NOTE | 2019-04-02 11:04 | IPNPDOC ---
Date Seen The patient was seen on 04/02/19. Progress Note Subjective still c/o left leg pain, but able to ambulate. 5/10 on pain sclae improved on current pain meds. "I never had skin infections before. I thought maybe from my third toe there. Not even had any reaction to poison deidra or anything like that ever." No fever or chills, no chest pain or sob. Objective Physical Examination vitals: pls see below General Exam: Positive: Alert, Cooperative, Other (hesitant in speech) Eye Exam: Positive: PERRLA, Conjunctiva & lids normal, EOMI, Other Eye Symptoms (wears spectacles); Negative: Sclera icteric, Ptosis ENT Exam: Positive: Atraumatic, Mucous membr. moist/pink, Pharynx Normal, Tongue Midline, Nares Patent; Negative: Pharyngeal Edema Neck Exam: Positive: Supple, +2 carotid pulse wo bruit; Negative: JVD, thyromegaly, Lymphadenopathy Chest Exam: Positive: Clear to auscultation, Normal air movement; Negative: Rales, Rhonchi, Wheezing, Diminished Heart Exam: Positive: Rate Normal, Regular Rhythm, Normal S1, Normal S2; Negative: Gallops, Murmurs, Rubs Abdomen Exam: Positive: BS Hypoactive, Soft, Other (round, no guarding, no rebound); Negative: Tenderness, Hepatospenomegaly, Mass, Hernia Extremity Exam: Positive: Edema (mild trace edema, LLE), Normal pulses, Tenderness (to palpation), Other (extensive ecchymoses noted along anterior varela of LLE with surrounding spreading erythema circumferentially around LLE exten ding up into medial and lateral thigh; no abnormality noted to toe digits, no abrasions); Negative: Clubbing, Cyanosis Skin Exam: Positive: Rash (as noted above; no drainage); Negative: Nl turgor and temperature (LLE warm to the palpation) Neuro Exam: Negative: Normal Speech (hesitant, apprehensive speech) Laboratory data, imaging studies, microbiology: reviewed, pls see below Assessment /Plan Mr. Espinoza is a 73-year-old male with PMH of CAD s/p stents 3 months ago, BPH, Hyperlipidemia, Neuropathy, GERD who presents to [facility] Emergency Department with a pain left leg redness and swelling extending up to the groin. He was admitted for Cellulitis Left leg cellulitis with lymphangitis No necrotizing fascitis in MRI MRI LLE femur and tibia/fibula negative for any necrotizing fascitis. continue Ceftriaxone and vanco ID consulted. Blood cultures pending Procalcitonin ordered Tylenol and Percocet as needed for pain control Acute kidney injury 2/2 dehydration improved. CAD s/p PCI x1 stent Continue ASA and Brilinta Continue Metoprolol, Pravastatin BPH Continue Tamsulosin GERD continue PPI. Plan/VTE VTE Prophylaxis Ordered?: Yes (TEDs, ASA, Brilinta) Plan Diet: Continue Current (2g sodium) Activity: Continue Current (bedrest with bathroom privileges) Therapy: PT Diagnostics: Repeat Labs in AM Anticipated [facility]charge[facility] Vital Signs/I&O Vital Signs Date Time Temp Pulse Resp B/P (MAP) Pulse Ox O2 Delivery O2 Flow Rate FiO2 04/02/19 08:48 80 137/72 04/02/19 06:00 98.3 18 96 03/31/19 02:53 Room Air I&O- Last 24 Hours up to 6 AM 04/02/19 06:00 Intake Total 1310 ml Balance 1310 ml Laboratory Data 24H LABS Laboratory Tests 2 04/02/19 05:36: Nucleated Red Blood Cells % (auto) 0.0, Anion Gap 7L, Glomerular Filtration Rate > 60.0, Blood Urea Nitrogen 14, Creatinine 1.05, Sodium Level 142, Potassium Level 3.3L, Chloride Level 110H, Carbon Dioxide Level 25, Calcium Level 7.6L, Aspartate Amino Transf (AST/SGOT) 38H, Alanine Aminotransferase (ALT/SGPT) 38, Alkaline Phosphatase 90, Total Bilirubin 0.8, Total Protein 5.8L, Albumin 2.1L, C-Reactive Protein, Quantitative 20.20H, Albumin/Globulin Ratio 0.57L CBC/BMP Laboratory Tests 04/02/19 05:36 Red Blood Count 4.18 L, Mean Corpuscular Volume 87.1, Mean Corpuscular Hemoglobin 29.7, Mean Corpuscular Hemoglobin Concent 34.1, Red Cell Distribution Width 12.0, Calcium Level 7.6 L, Aspartate Amino Transf (AST/SGOT) 38 H, Alanine Aminotransferase (ALT/SGPT) 38, Alkaline Phosphatase 90, Total Bilirubin 0.8, Total Protein 5.8 L, Albumin 2.1 L Microbiology Microbiology 03/30/19 Blood Culture - Preliminary, Resulted No Growth after 48 hours. All Specime... 03/30/19 Blood Culture - Preliminary, Resulted No Growth after 48 hours. All Specime... RON FERNANDES MD Apr 02, 2019 10:51
[2019-04-02 14:00] VITALS: BP 126/65
[2019-04-02] MEDS: ACETAMINOPHEN TAB 650MG DOSE (2X325MG) PO PRN (15:44)
[2019-04-02] MEDS: PRAVASTATIN 20 MG TAB PO SCH (21:07)
[2019-04-02] MEDS: GABAPENTIN 300 MG CAP PO SCH (21:07)
[2019-04-02] MEDS: cefTRIAXone SOD 2 GM in D5W MINI-BAG PLUS 50 ML IV SCH (21:08)
[2019-04-02] MEDS: PERCOCET 5MG/325MG TAB PO PRN (21:09)
[2019-04-02 22:00] VITALS: BP 136/80
--- NOTE | 2019-04-02 23:07 | PHACANCOPD ---
PHARMACY VANCOMYCIN DOSING Pt Demographics Demographics Patient Age:73 , Weight:102.800 , Gender: male Adjusted Body Weight Events Past 24 Hours Events Past 24 Hours: NO: Dialysis, Diuretic Therapy, Change in CrCl, Fever, Elevation in WBC, Pending Diagnostics, Pending Procedures, Other Vancomycin Vancomycin indication: CELLULITIS Vancomycin Target Ranges: 15-20 mcg/ml Vancomycin Load Y/N: Yes Load Dose Date Time Vancomycin Load Dose: 2000mg Date: 03-31 Time: 0200 Vancomycin Dose Date: 04/02/19. Current Vancomycin Dose: [1250MG IV Q12H@16 followed by a change to VANCO 1GM IV Q8H starting @00:00 04/03/19] Intermittent Dosing?: No Labs Labs Laboratory Tests Test 04/02/19 14:45 Vancomycin Level Trough 10.1 UG/ML (10.0-20.0) Laboratory Tests 04/02/19 05:36 Red Blood Count 4.18, Mean Corpuscular Volume 87.1, Mean Corpuscular Hemoglobin 29.7, Mean Corpuscular Hemoglobin Concent 34.1, Red Cell Distribution Width 12.0, Calcium Level 7.6, Aspartate Amino Transf (AST/SGOT) 38, Alanine Aminotransferase (ALT/SGPT) 38, Alkaline Phosphatase 90, Total Bilirubin 0.8, Total Protein 5.8, Albumin 2.1 Micro Microbiology 03/30/19 Blood Culture - Preliminary, Resulted No Growth after 72 hours. All specime... 03/30/19 Blood Culture - Preliminary, Resulted No Growth after 72 hours. All specime... Creatinine Clearance Date:03/31/19. Creatinine Clearance: [~40]. Pending Labs Trough 04/03/19 @15:00 Assessment and Plan Maintaining Current Dose?: No Reason for dose change: Trough too low Pharmacist Note Pharmacist Note : PharmD NOTE: 1250MG VANCO IV Q12H RESULTGED IN A VANCO TROUGH = 10.1 mcg/ml (GOAL 15-20 mcg/ml). ONCE THE 16:00 DOSE OF VANCO IS COMPLETED WE WILL CHANGE HIM TO 1GM IV VANCO Q8H STARTING AT MIDNIGHT TONIGHT 04/03/19 (30mg/kg/day). A VANCO TROUGH WILL BE REPEATED TOMORROW AFTERNOON 60 MINUTES PRIOR TO HIS 16:00 DOSE AICHA FIERRO PHARMACY Apr 02, 2019 23:07
[2019-04-03] MEDS: VANCOMYCIN HCL 1,000 MG, VIAL MATE ADAPTER 1 EACH in D5W 250 ML IV SCH ×3 (00:22→15:46)
[2019-04-03 06:00] VITALS: BP 111/59
[2019-04-03 06:11] LABS: HEMATOCRIT 37.6 % (42.0-52.0); HEMOGLOBIN 13.1 g/dl (13.5-17.5); MEAN CORPUSCULAR HEMOGLOBIN 30.8 pg (27.0-33.0); MEAN CORPUSCULAR HGB CONC 34.8 g/dl (32.0-36.5); MEAN CORPUSCULAR VOLUME 88.5 fl (80.0-96.0); PLATELET COUNT, AUTOMATED 187 10^3/uL (150-450); RED BLOOD COUNT 4.25 10^6/uL (4.30-6.10)
[2019-04-03 06:40] LABS: ALBUMIN 2.1 GM/DL (3.2-5.2); ALT/SGPT 44 U/L (12-78); BILIRUBIN,TOTAL 0.5 MG/DL (0.2-1.0); BLOOD UREA NITROGEN 11 MG/DL (7-18); CARBON DIOXIDE LEVEL 26 MEQ/L (21-32); CHLORIDE LEVEL 108 MEQ/L (98-107); CREATININE FOR GFR 1.04 MG/DL (0.70-1.30); GLOMERULAR FILTRATION RATE > 60.0 (>42); GLUCOSE, FASTING 97 MG/DL (70-100); POTASSIUM SERUM 3.4 MEQ/L (3.5-5.1); SODIUM LEVEL 142 MEQ/L (136-145); TOTAL PROTEIN 5.8 GM/DL (6.4-8.2)
[2019-04-03] MEDS: OMEPRAZOLE 20 MG CAP PO SCH (08:02)
[2019-04-03] MEDS: TAMSULOSIN 0.4 MG CAP PO SCH (08:02)
[2019-04-03] MEDS: TICAGRELOR 90 MG TABLET (BRILINTA) PO SCH ×2 (08:02→21:23)
[2019-04-03] MEDS: METOPROLOL TART 25 MG TABLET PO SCH ×2 (08:02→21:23)
[2019-04-03] MEDS: ASPIRIN 81 MG ENTERIC TAB PO SCH (08:02)
[2019-04-03] MEDS ORDERED: BACT800T5 PO (13:16)
[2019-04-03] MEDS ORDERED: PERCOCET PO (13:16)
[2019-04-03] MEDS ORDERED: KEFL500C17 PO (13:16)
--- NOTE | 2019-04-03 13:22 | IPNPDOC ---
Date Seen The patient was seen on 04/03/19. Progress Note Subjective still with tenderness and swelling, asking to go home soon. pt has responded well with decreased erythema, but will need another 24-48hrs for resolution. no fever or chills. passed home safety evaluation by physical therapy. Pt sees [facility] and has no e-prescriptions available. plans for discharge on . No signs of fasciitis or osteomyelitis on MRI LE. Objective Physical Examination vitals: pls see below General Exam: Positive: Alert, Cooperative, Other (hesitant in speech) Eye Exam: Positive: PERRLA, Conjunctiva & lids normal, EOMI, Other Eye Symptoms (wears spectacles); Negative: Sclera icteric, Ptosis ENT Exam: Positive: Atraumatic, Mucous membr. moist/pink, Pharynx Normal, Tongue Midline, Nares Patent; Negative: Pharyngeal Edema Neck Exam: Positive: Supple, +2 carotid pulse wo bruit; Negative: JVD, thyromegaly, Lymphadenopathy Chest Exam: Positive: Clear to auscultation, Normal air movement; Negative: Rales, Rhonchi, Wheezing, Diminished Heart Exam: Positive: Rate Normal, Regular Rhythm, Normal S1, Normal S2; Negative: Gallops, Murmurs, Rubs Abdomen Exam: Positive: BS Hypoactive, Soft, Other (round, no guarding, no rebound); Negative: Tenderness, Hepatospenomegaly, Mass, Hernia Extremity Exam: Positive: Edema (mild trace edema, LLE), Normal pulses, Tenderness (to palpation), Other (extensive ecchymoses noted along anterior varela of LLE with surrounding spreading erythema circumferentially around LLE extending up into medial and lateral thigh; no abnormality noted to toe digits, no abrasions); Negative: Clubbing, Cyanosis Skin Exam: Positive: Rash (as noted above; no drainage); Negative: Nl turgor and temperature (LLE warm to the palpation) Neuro Exam: Negative: Normal Speech (hesitant, apprehensive speech) Laboratory data, imaging studies, microbiology: reviewed, pls see below Assessment /Plan Mr. Espinoza is a 73-year-old male with PMH of CAD s/p stents 3 months ago, BPH, Hyperlipidemia, Neuropathy, GERD who presents to [facility]'s Emergency Department with a pain left leg redness and swelling extending up to the groin. He was admitted for Cellulitis Left leg cellulitis with lymphangitis No necrotizing fascitis in MRI MRI LLE femur and tibia/fibula negative for any necrotizing fascitis. continue Ceftriaxone and vanco ID consulted. Blood cultures pending Procalcitonin ordered Tylenol and Percocet as needed for pain control Acute kidney injury 2/2 dehydration improved. CAD s/p PCI x1 stent Continue ASA and Brilinta Continue Metoprolol, Pravastatin BPH Continue Tamsulosin GERD continue PPI. Plan/VTE VTE Prophylaxis Ordered?: Yes (TEDs, ASA, Brilinta) Plan Diet: Continue Current (2g sodium) Activity: Continue Current (bedrest with bathroom privileges) Therapy: PT Diagnostics: Repeat Labs in AM Anticipated Discharge: Home VS, [facility]&O[facility] Vital Signs/I&O Vital Signs Date Time Temp Pulse Resp B/P (MAP) Pulse Ox O2 Delivery O2 Flow Rate FiO2 04/03/19 08:02 70 136/82 04/03/19 06:00 97.8 20 96 03/31/19 02:53 Room Air I&O- Last 24 Hours up to 6 AM 04/03/19 06:00 Intake Total 2690 ml Output Total 0 ml Balance 2690 ml Laboratory Data 24H LABS Laboratory Tests 2 04/02/19 14:45: Vancomycin Level Trough 10.1 04/03/19 05:53: Nucleated Red Blood Cells % (auto) 0.0, Anion Gap 8, Glomerular Filtration Rate > 60.0, Blood Urea Nitrogen 11, Creatinine 1.04, Sodium Level 142, Potassium Level 3.4L, Chloride Level 108H, Carbon Dioxide Level 26, Calcium Level 8.0L, Aspartate Amino Transf (AST/SGOT) 42H, Alanine Aminotransferase (ALT/SGPT) 44, Alkaline Phosphatase 87, Total Bilirubin 0.5, Total Protein 5.8L, Albumin 2.1L, C-Reactive Protein, Quantitative 14.20H, Albumin/Globulin Ratio 0.57L CBC/BMP Laboratory Tests 04/03/19 05:53 Red Blood Count 4.25 L, Mean Corpuscular Volume 88.5, Mean Corpuscular Hemoglobin 30.8, Mean Corpuscular Hemoglobin Concent 34.8, Red Cell Distribution Width 11.9, Calcium Level 8.0 L, Aspartate Amino Transf (AST/SGOT) 42 H, Alanine Aminotransferase (ALT/SGPT) 44, Alkaline Phosphatase 87, Total Bilirubin 0.5, Total Protein 5.8 L, Albumin 2.1 L Microbiology Microbiology 03/30/19 Blood Culture - Preliminary, Resulted No Growth after 72 hours. All specime... 03/30/19 Blood Culture - Preliminary, Resulted No Growth after 72 hours. All specime... RON FERNANDES MD Apr 03, 2019 13:19
[2019-04-03] MEDS ORDERED: POTASSIUM CHLORIDE 10 MEQ SR TABLET PO ONE (13:30)
[2019-04-03 14:00] VITALS: BP 131/75
--- NOTE | 2019-04-03 15:34 | PHACANCOPD ---
PHARMACY VANCOMYCIN DOSING Pt Demographics Demographics Patient Age:73 , Weight:101.800 , Gender: male Adjusted Body Weight Events Past 24 Hours Events Past 24 Hours: NO: Dialysis, Diuretic Therapy, Change in CrCl, Fever, Elevation in WBC, Pending Diagnostics, Pending Procedures, Other Vancomycin Vancomycin indication: CELLULITIS Vancomycin Target Ranges: 15-20 mcg/ml Vancomycin Load Y/N: Yes Load Dose Date Time Vancomycin Load Dose: 2000mg Date: 03-31 Time: 0200 Vancomycin Dose Date: 04/02/19. Current Vancomycin Dose: [1250MG IV Q12H@16 followed by a change to VANCO 1GM IV Q8H starting @00:00 04/03/19] Intermittent Dosing?: No Labs Labs Item Value Date Time White Blood Count 13.0 10^3/uL H 04/01/19 0546 White Blood Count 10.6 10^3/uL H 04/02/19 0536 White Blood Count 9.0 10^3/uL 04/03/19 0553 Creatinine 1.05 MG/DL 04/01/19 0546 Creatinine 1.05 MG/DL 04/02/19 0536 Creatinine 1.04 MG/DL 04/03/19 0553 Vancomycin Level Trough 10.1 UG/ML 04/02/19 1445 Vancomycin Level Trough 18.1 UG/ML 04/03/19 1450 Micro Microbiology 03/30/19 Blood Culture - Preliminary, Resulted No Growth after 72 hours. All specime... 03/30/19 Blood Culture - Preliminary, Resulted No Growth after 72 hours. All specime... Creatinine Clearance Date:03/31/19. Creatinine Clearance: [~40]. Date:04/03/19. Creatinine Clearance: [67ML/MIN]. Assessment and Plan Maintaining Current Dose?: Yes Reason for dose change: No Dose Change Pharmacist Note Pharmacist Note Date: 04/03/19. Pharmacist note:Pt trough came back today @14:50 @18.1mcg/ml. Dosing will continue at 1g iv every 8 hours. We will continue to monitor and adjust the dose as needed. : PharmD NOTE: 1250MG VANCO IV Q12H RESULTGED IN A VANCO TROUGH = 10.1 mcg/ml (GOAL 15-20 mcg/ml). ONCE THE 16:00 DOSE OF VANCO IS COMPLETED WE WILL CHANGE HIM TO 1GM IV VANCO Q8H STARTING AT MIDNIGHT TONIGHT 04/03/19 (30mg/kg/day). A VANCO TROUGH WILL BE REPEATED TOMORROW AFTERNOON 60 MINUTES PRIOR TO HIS 16:00 DOSE IJEOMA MARQUEZ PHARMACY Apr 03, 2019 15:34
[2019-04-03] MEDS: PERCOCET 5MG/325MG TAB PO PRN (21:22)
[2019-04-03] MEDS: PRAVASTATIN 20 MG TAB PO SCH (21:23)
[2019-04-03] MEDS: GABAPENTIN 300 MG CAP PO SCH (21:23)
[2019-04-03] MEDS: cefTRIAXone SOD 2 GM in D5W MINI-BAG PLUS 50 ML IV SCH (21:24)
[2019-04-03 22:00] VITALS: BP 149/81
[2019-04-04] MEDS: VANCOMYCIN HCL 1,000 MG, VIAL MATE ADAPTER 1 EACH in D5W 250 ML IV SCH ×3 (00:33→17:27)
[2019-04-04 06:00] VITALS: BP 126/79
[2019-04-04 06:18] LABS: HEMATOCRIT 39.4 % (42.0-52.0); HEMOGLOBIN 13.7 g/dl (13.5-17.5); MEAN CORPUSCULAR HGB CONC 34.8 g/dl (32.0-36.5); MEAN CORPUSCULAR VOLUME 89.1 fl (80.0-96.0); PLATELET COUNT, AUTOMATED 252 10^3/uL (150-450); RED BLOOD COUNT 4.42 10^6/uL (4.30-6.10)
[2019-04-04 06:42] LABS: ALBUMIN 2.3 GM/DL (3.2-5.2); ALT/SGPT 58 U/L (12-78); BILIRUBIN,TOTAL 0.5 MG/DL (0.2-1.0); BLOOD UREA NITROGEN 12 MG/DL (7-18); CALCIUM LEVEL 8.4 MG/DL (8.8-10.2); CARBON DIOXIDE LEVEL 27 MEQ/L (21-32); CHLORIDE LEVEL 106 MEQ/L (98-107); CREATININE FOR GFR 1.17 MG/DL (0.70-1.30); GLOMERULAR FILTRATION RATE > 60.0 (>42); GLUCOSE, FASTING 97 MG/DL (70-100); POTASSIUM SERUM 3.7 MEQ/L (3.5-5.1); SODIUM LEVEL 143 MEQ/L (136-145); TOTAL PROTEIN 6.3 GM/DL (6.4-8.2)
[2019-04-04] MEDS: OMEPRAZOLE 20 MG CAP PO SCH (08:15)
[2019-04-04] MEDS: TICAGRELOR 90 MG TABLET (BRILINTA) PO SCH ×2 (08:15→21:18)
[2019-04-04] MEDS: TAMSULOSIN 0.4 MG CAP PO SCH (08:15)
[2019-04-04] MEDS: ASPIRIN 81 MG ENTERIC TAB PO SCH (08:15)
[2019-04-04] MEDS: METOPROLOL TART 25 MG TABLET PO SCH ×2 (08:15→21:19)
[2019-04-04] MEDS ORDERED: BACT800T5 PO (10:50)
[2019-04-04] MEDS ORDERED: BACITAB PO (10:50)
[2019-04-04] MEDS ORDERED: KEFL500C17 PO (10:50)
[2019-04-04] MEDS ORDERED: PERC5TAB12 PO (10:51)
[2019-04-04 14:00] VITALS: BP 124/71
[2019-04-04] MEDS: GABAPENTIN 300 MG CAP PO SCH (21:18)
[2019-04-04] MEDS: cefTRIAXone SOD 2 GM in D5W MINI-BAG PLUS 50 ML IV SCH (21:18)
[2019-04-04] MEDS: PRAVASTATIN 20 MG TAB PO SCH (21:18)
[2019-04-04] MEDS: PERCOCET 5MG/325MG TAB PO PRN (21:19)
[2019-04-04 22:00] VITALS: BP 134/78
[2019-04-05] MEDS: VANCOMYCIN HCL 1,000 MG, VIAL MATE ADAPTER 1 EACH in D5W 250 ML IV SCH (00:38)
[2019-04-05 06:00] VITALS: BP 107/61
[2019-04-05 07:16] LABS: HEMATOCRIT 37.9 % (42.0-52.0); HEMOGLOBIN 12.9 g/dl (13.5-17.5); MEAN CORPUSCULAR HEMOGLOBIN 29.9 pg (27.0-33.0); MEAN CORPUSCULAR VOLUME 87.7 fl (80.0-96.0); PLATELET COUNT, AUTOMATED 302 10^3/uL (150-450); RED BLOOD COUNT 4.32 10^6/uL (4.30-6.10); WHITE BLOOD COUNT 7.8 10^3/uL (4.0-10.0)
[2019-04-05 07:39] LABS: ALBUMIN 2.3 GM/DL (3.2-5.2); ALT/SGPT 65 U/L (12-78); BILIRUBIN,TOTAL 0.4 MG/DL (0.2-1.0); BLOOD UREA NITROGEN 12 MG/DL (7-18); CALCIUM LEVEL 8.2 MG/DL (8.8-10.2); CARBON DIOXIDE LEVEL 30 MEQ/L (21-32); CHLORIDE LEVEL 106 MEQ/L (98-107); CREATININE FOR GFR 1.24 MG/DL (0.70-1.30); GLOMERULAR FILTRATION RATE > 60.0 (>42); GLUCOSE, FASTING 97 MG/DL (70-100); POTASSIUM SERUM 3.7 MEQ/L (3.5-5.1); SODIUM LEVEL 143 MEQ/L (136-145); TOTAL PROTEIN 6.1 GM/DL (6.4-8.2)
[2019-04-05] MEDS: ASPIRIN 81 MG ENTERIC TAB PO SCH (08:40)
[2019-04-05 08:41] VITALS: BP 107/61
[2019-04-05] MEDS: METOPROLOL TART 25 MG TABLET PO SCH (08:41)
[2019-04-05] MEDS: TICAGRELOR 90 MG TABLET (BRILINTA) PO SCH (08:41)
[2019-04-05] MEDS: OMEPRAZOLE 20 MG CAP PO SCH (08:41)
[2019-04-05] MEDS: TAMSULOSIN 0.4 MG CAP PO SCH (08:41)
--- NOTE | 2019-04-05 09:01 | CR ---
DATE OF CONSULTATION: 04/04/2019 REASON FOR CONSULTATION: I was asked to consult by Dr. Cox for evaluation of left lower extremity cellulitis. HISTORY OF PRESENT ILLNESS Mr. Espinoza is a 63-year-old gentleman with no significant past medical history who presented with acute onset of fever, chills and left leg pain which he rates as 4/10. The patient had stubbed his toe about a week prior to admission. He was home for a couple days before he came into the hospital. He was started on broad-spectrum antibiotics with vancomycin and Rocephin. There was no purulent discharge. There was some concern of necrotizing fasciitis, so he had a lower extremity MRI done on 03/30 which did not show any bony abnormalities such as osteomyelitis or necrotizing fasciitis. There was cellulitis involving the left groin and the left thigh. PAST MEDICAL HISTORY: Significant for: Coronary artery disease status post percutaneous coronary intervention (PCI), one stent. Gastroesophageal reflux disease (GERD). Dyslipidemia. Benign prostatic hypertrophy (BPH). Insomnia. PAST SURGICAL HISTORY: Right hand Dupuytren's contracture. Left shoulder distal clavicle excision. FAMILY HISTORY Father at age 77 from heart disease and mother at age 89 from lung cancer. SOCIAL HISTORY: He has d a history of tobacco abuse but quit at the age of 44. No alcohol or drug use. He lives alone. He drives. 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 No pets at home. REVIEW OF SYSTEMS The patient has no nausea, vomiting or diarrhea. No abdominal pain. No fever or chills, at this point they have resolved. The patient is bored and would like to go home. He still has some leg pain but it is tolerable, gets worse with ambulation. VITAL SIGNS: Temperature is 97.7, pulse 67, respirations 18, blood pressure 134/78, oxygen saturation 95% on room air. GENERAL APPEARANCE: Healthy elderly gentleman in no acute distress. HEART; Normal S1 and S2. No murmurs, rubs or gallops. LUNGS: Lungs are clear. No wheezes, rales or rhonchi. ABDOMEN: Soft. Nontender. No hepatosplenomegaly. BACK: No CVA or lumbosacral tenderness. EXTREMITIES: Right leg no clubbing, cyanosis, or edema. Left leg has +1 ankle edema and erythema that extends from the lower leg all the way to the groin. The erythema has faded along the thighs, still quite prominent along the varela, mostly anteriorly with deep purplish discoloration, nonblanching, slightly tender to touch. No hemorrhagic lesions and no purulent discharge. LABORATORY DATA: White count 8, hemoglobin 13.7, hematocrit 39.4, platelets 252. White count on admission was 11, ESR 35. Sodium 143, potassium 3.7, chloride 106, bicarb 27, BUN 12, creatinine 1.17, glucose 97, calcium 8.4, AST 58, ALT 58, alkaline phosphatase 95, CRP 10.1, albumin 2.3. Vancomycin trough 18.1. Blood cultures two sets are negative after five days. X-RAYS: Foot x-ray, tibia/fibula x-ray no osteomyelitis. No fractures. Vascular ultrasound done on 03/30/2019 no deep vein thrombosis (DVT) in the left lower extremity. IMPRESSION: This is a 73-year-old gentleman who was admitted with acute onset of fever, chills, leukocytosis associated with left lower extremity cellulitis without purulence. This is most likely a streptococcal infection than Staphylococcus Aureus. Doubt Methicillin-resistant Staphylococcus aureus (MRSA) as there was no purulence. The patient has clinically improved and ready to be discharged home. PLAN: Will obtain MRSA screen, PCR, although my suspicion is very low. I agree with discharge antibiotics that Dr. Cox has already sent to the pharmacy including Keflex or Augmentin. Bactrim could be added for MRSA, although my suspicion is very low. The patient could be discharged home tomorrow. The patient does not need infectious disease follow-up and could be followed up at the [facility].
[2019-04-05 09:05] LABS: VANCOMYCIN LEVEL TROUGH 27.1 UG/ML (10.0-20.0)
--- NOTE | 2019-04-05 11:01 | DS.PDOC ---
Discharge Summary General Date of Admission Mar 30, 2019 at 22:54 Date of Discharge April 05, 2019 Discharge Summary INPATIENT G[employer]TER: INFECTIOUS DISEASE-DR MARISSA GARDNER DISCHARGE DIAGNOSES: Mr. Espinoza is a 73-year-old male with PMH of CAD s/p stents 3 months ago, BPH, Hyperlipidemia, Neuropathy, GERD who presents to [facility]'s Emergency Department with a pain left leg redness and swelling extending up to the groin. He was admitted for Cellulitis Left leg cellulitis with lymphangitis Acute kidney injury 2/2 dehydration CAD s/p PCI x1 stent BPH GERD DISCHARGE MEDS: PLS SEE BELOW HISTORY OF PRESENTING ILLNESS: Mr. Espinoza is a 73-year-old male with PMH of CAD s/p stents 3 months ago, BPH, Hyperlipidemia, Neuropathy, GERD who presents to [facility]'s Emergency Department with a pain left leg redness and swelling extending up to the groin. He was admitted for Cellulitis Left leg cellulitis with lymphangitis No necrotizing fascitis in MRI MRI LLE femur and tibia/fibula negative for any necrotizing fascitis. s/p Ceftriaxone and vanco to complete outpt keflex and bactrim checked mrsa screen ID consulted. Blood cultures negative Procalcitonin ordered Tylenol and Percocet as needed for pain control pain was 2/10 on hospital discharge relieved with current pain meds. Acute kidney injury 2/2 dehydration improved. CAD s/p PCI x1 stent Continue ASA and Brilinta Continue Metoprolol, Pravastatin BPH Continue Tamsulosin GERD continue PPI. DISCHARGE PHYSICAL EXAMINATION: vitals: pls see below General Exam: Positive: Alert, Cooperative, Other (hesitant in speech) Eye Exam: Positive: PERRLA, Conjunctiva & lids normal, EOMI, Other Eye Symptoms (wears spectacles); Negative: Sclera icteric, Ptosis ENT Exam: Positive: Atraumatic, Mucous membr. moist/pink, Pharynx Normal, Tongue Midline, Nares Patent; Negative: Pharyngeal Edema Neck Exam: Positive: Supple, +2 carotid pulse wo bruit; Negative: JVD, thyromegaly, Lymphadenopathy Chest Exam: Positive: Clear to auscultation, Normal air movement; Negative: Rales, Rhonchi, Wheezing, Diminished Heart Exam: Positive: Rate Normal, Regular Rhythm, Normal S1, Normal S2; Negative: Gallops, Murmurs, Rubs Abdomen Exam: Positive: BS Hypoactive, Soft, Other (round, no guarding, no rebound); Negative: Tenderness, Hepatospenomegaly, Mass, Hernia Extremity Exam: Positive: Edema (mild trace edema, LLE), Normal pulses, Tenderness (to palpation), Other (extensive ecchymoses noted along anterior varela of LLE with surrounding spreading erythema circumferentially around LLE extending up into medial and lateral thigh; no abnormality noted to toe digits, no abrasions); Negative: Clubbing, Cyanosis Skin Exam: Positive: Rash (as noted above; no drainage); Negative: Nl turgor and temperature (LLE warm to the palpation) Neuro Exam: Negative: Normal Speech (hesitant, apprehensive speech) DISCHARGE Laboratory data, imaging studies, microbiology: reviewed, pls see below EXAM: US Duplex Left Lower Extremity Veins, Limited EXAM DATE/TIME: 03/30/2019 6:28 PM CLINICAL HISTORY: 73 years old, male; Pain; Leg, lower; Left; Additional info: R/O dvt. TECHNIQUE: Imaging protocol: Real-time Duplex ultrasound of the Left Lower Extremity with 2-D denny scale, color Doppler flow and spectral waveform analysis. Limited exam focused on the left lower extremity veins. COMPARISON: No relevant prior studies available. FINDINGS: Left deep veins: Unremarkable. The common femoral, femoral, proximal profunda femoral and popliteal veins are patent without thrombus. Normal Doppler waveforms. Normal compressibility and/or augmentation response. Soft tissues: Unremarkable. IMPRESSION: No evidence of deep venous thrombosis in the left lower extremity. Electronically signed by: Galilea Jeff On 03/30/2019 19:33:23 PM DD: GALILEA JEFF MD 03/30/19 1828 DT: CARY 03/30/191932 DS: ALFRED 03/30/191932 Left tibia-fibula four views History: Cellulitis There is no acute fracture or dislocation. The joint spaces are normal in appearance. Impression: There is no acute fracture or dislocation. Electronically Signed by Mayur Livingston MD 03/30/2019 10:14 P DD: Mayur Livingston MD 03/30/192212 DT: Juanjose 03/30/192213 DS: HOMER 03/30/19221303/30/192213 Left foot two views History: Cellulitis There is no acute fracture or dislocation. The joint spaces are normal in appearance. Impression: There is no acute fracture or dislocation. Electronically Signed by Mayur Livingston MD 03/30/2019 10:16 P DD: Mayur Livingston MD 03/30/192214 DT: Juanjose 03/30/192215 DS: HOMER 03/30/19221503/30/192215 EXAM: MR Left Lower Extremity Without Contrast, Tibia Fibula EXAM DATE/TIME: 03/31/2019 2:56 AM CLINICAL HISTORY: 73 years old, male; Signs and symptoms; Cellulitis and difficulty in walking; Lower leg and thigh; Left; Patient HX: PT states stubbed 3rd toe a week ago and now has fever and redness going up left leg. On femur its more on the inside of lateral femur up to groin, PT refused contrast portion of exam due to to much back pain and refused meds when given the option; Additional info: ? Necrotizing fasciitis TECHNIQUE: Imaging protocol: MR of the Left tibia fibula without intravenous contrast. COMPARISON: CR Tibia, Fibula lower leg LEFT 03/30/2019 8:07 PM FINDINGS: Bones/joints: The left tibia and fibula are intact and demonstrate normal signal. There is no fracture, stress fracture, or varela splints. There are no bony destructive changes, cortical erosions, bone marrow edema, or periostitis to suggest osteomyelitis. Soft tissues: There is edema in the subcutaneous tissues around the left calf, predominantly anteriorly, which is compatible with cellulitis. No drainable soft tissue fluid collection is noted to suggest an abscess. There is no fluid in the intermuscular fascial planes, thickening of the deep fascial planes, or gas in the soft tissues to suggest necrotizing fasciitis. The imaged muscles are intact and demonstrate normal signal. The left Achilles tendon and left popliteus tendon are intact. No left popliteal cyst is present. IMPRESSION: 1. Cellulitis in the left calf. 2. No evidence for an abscess, necrotizing fasciitis, or osteomyelitis in the left calf. Electronically signed by: Armando Shepherd On 03/31/2019 03:34:50 AM DD: ARMANDO SHEPHERD MD 03/31/19 0256 DT: CARY 03/31/19 0334 DS: ANTOINETTE 03/31/19 033 [~ rep ct labl] EXAM: MR Left Lower Extremity Without Contrast, Femur EXAM DATE/TIME: 03/31/2019 2:56 AM CLINICAL HISTORY: 73 years old, male; Pain and signs and symptoms; Cellulitis and difficulty in walking; Lower leg and thigh; Left; Patient HX: PT states stubbed 3rd toe a week ago and now has fever redness going up leftt leg. On femur its more on the inside of femur up to groin, PT refused contrast portion of exam due to to much back pain and refused meds when given the option; Additional info: ? Necrotizing fasciitis TECHNIQUE: Imaging protocol: MR of the Left femur without intravenous contrast. COMPARISON: CR Tibia, Fibula lower leg LEFT 03/30/2019 8:07 PM FINDINGS: Bones/joints: The imaged portion of the left femur is intact and demonstrates normal bone marrow signal. There is no fracture or dislocation. There is a trace left knee joint effusion. There are no bony destructive changes, cortical erosions, bone marrow edema, or periostitis to suggest osteomyelitis. Soft tissues: There is edema in the subcutaneous tissues in the left groin and anterior aspect of the left upper thigh tracking medially along the mid to distal portion of the left thigh. No drainable soft tissue fluid collection is noted to suggest an abscess. There is no fluid in the intermuscular fascial planes, thickening of the deep fascial planes, or gas in the soft tissues to suggest necrotizing fasciitis. Other findings: There are small bilateral hydroceles in the scrotal sacs. The prostate gland is heterogeneous in appearance. The prostate gland was not fully imaged. IMPRESSION: 1. Cellulitis involving the left groin and left thigh. 2. No evidence for an abscess, necrotizing fasciitis, or osteomyelitis in the left thigh. Electronically signed by: Armando Shepherd On 03/31/2019 03:42:33 AM DD: ARMANDO SHEPHERD MD 03/31/19 0256 DT: CARY 03/31/19 0342 DS: ANTOINETTE 03/31/19 0342 TIME SPENT ON HOSPITAL DISCHARGE: 35MIN Vital Signs/I&Os Vital Signs Date Time Temp Pulse Resp B/P (MAP) Pulse Ox O2 Delivery O2 Flow Rate FiO2 04/05/19 08:41 58 107/61 04/05/19 06:00 97.5 17 93 03/31/19 02:53 Room Air I&O- Last 24 Hours up to 6 AM 04/05/19 06:00 Intake Total 1680 ml Output Total 0 ml Balance 1680 ml Laboratory Data Labs 24H Laboratory Tests 2 04/05/19 06:49: Nucleated Red Blood Cells % (auto) 0.0, Anion Gap 7L, Glomerular Filtration Rate > 60.0, Blood Urea Nitrogen 12, Creatinine 1.24, Sodium Level 143, Potassium Level 3.7, Chloride Level 106, Carbon Dioxide Level 30, Calcium Level 8.2L, Aspartate Amino Transf (AST/SGOT) 54H, Alanine Aminotransferase (ALT/SGPT) 65, Alkaline Phosphatase 82, Total Bilirubin 0.4, Total Protein 6.1L, Albumin 2.3L, C-Reactive Protein, Quantitative 4.90H, Albumin/Globulin Ratio 0.61L, Vancomycin Level Trough 27.1*H CBC/BMP Laboratory Tests 04/05/19 06:49 Red Blood Count 4.32, Mean Corpuscular Volume 87.7, Mean Corpuscular Hemoglobin 29.9, Mean Corpuscular Hemoglobin Concent 34.0, Red Cell Distribution Width 11.8, Calcium Level 8.2 L, Aspartate Amino Transf (AST/SGOT) 54 H, Alanine Aminotransferase (ALT/SGPT) 65, Alkaline Phosphatase 82, Total Bilirubin 0.4, Total Protein 6.1 L, Albumin 2.3 L Microbiology Microbiology 03/30/19 Blood Culture - Final, Complete NO GROWTH AFTER 5 DAYS 03/30/19 Blood Culture - Final, Complete NO GROWTH AFTER 5 DAYS 04/04/19 MRSA Screen, Received Pending Discharge Medications Scheduled Aspirin (Aspirin EC) 81 Mg Tablet.dr, 81 MG PO DAILY, (Reported) Cephalexin (Keflex) 500 Mg Capsule, 500 MG PO TID Gabapentin (Neurontin) 300 Mg Capsule, 300 MG PO QHS, (Reported) L.acidoph/L.bulg/B.bif/S.therm (Bacid Caplet) 1 Each Tablet, 1 TAB PO AC Metoprolol Tartrate (Metoprolol Tartrate) 25 Mg Tablet, 25 MG PO BID, (Reported) Multivitamin with Folic Acid (One Daily Multivitamin Tablet) 400 Mcg Tablet, 1 TAB PO DAILY, (Reported) [place]-3 Fatty Acids/Fish Oil (Fish Oil 1,000 mg Capsule) 1 Each Capsule, 2,000 MG PO BID, (Reported) Omeprazole (Omeprazole) 40 Mg Capsule.dr, 40 MG PO DAILY, (Reported) Pravastatin Sodium (Pravastatin Sodium) 40 Mg Tablet, 40 MG PO QHS, (Reported) Sulfamethoxazole/Trimethoprim (Bactrim Ds Tablet) 1 Each Tablet, 1 TAB PO BID Tamsulosin HCl (Flomax) 0.4 Mg Capsule, 0.4 MG PO DAILY, (Reported) Ticagrelor Base (Brilinta) 90 Mg Tablet, 90 MG PO BID, (Reported) Zolpidem Tartrate (Ambien) 10 Mg Tablet, 10 MG PO QHS, (Reported) Scheduled PRN Fluticasone Propionate (Flonase Allergy Relief) 9.9 Ml [place].susp, 1 [place] QHS PRN for CONGESTION, (Reported) Naproxen (Naproxen) 500 Mg Tablet, 500 MG PO DAILY PRN for PAIN OR FEVER, (Reported) Oxycodone HCl/Acetaminophen (Percocet 5-325 mg Tablet) 1 Each Tablet, 1 TAB PO Q6H PRN for pain Allergies Coded Allergies: No Known Allergies (Unverified , 03/30/19) RON FERNANDES MD Apr 05, 2019 10:55
== END 2019-04-05 08:59 | disposition home or self-care (01) | DRG 603 ==
LOC: M ED 18:05 → M ED INP 22:54 → M PCU 03-31 03:09 → M MSPAV 03-31 16:19
PROVIDERS: ADMIT Student in an Organized Health Care Education/Training Program; ATTEND General Practice
DX: L03.314 Cellulitis of groin (principal); N17.9 Acute kidney failure, unspecified; L03.116 Cellulitis of left lower limb; I89.1 Lymphangitis; E86.0 Dehydration; I25.10 Atherosclerotic heart disease of native coronary artery without angina pectoris; K21.9 Gastro-esophageal reflux disease without esophagitis; N40.0 Benign prostatic hyperplasia without lower urinary tract symptoms; Z95.2 Presence of prosthetic heart valve; E78.5 Hyperlipidemia, unspecified; G62.9 Polyneuropathy, unspecified; Z79.899 Other long term (current) drug therapy; Z79.82 Long term (current) use of aspirin; G47.00 Insomnia, unspecified; Z87.891 Personal history of nicotine dependence; E87.6 Hypokalemia

== ENCOUNTER 2019-11-30 22:53 | Emergency (ER) | payer MEDICARE, OTHER ==
[~2019-11-30] VITALS: Ht 182.9 cm; Wt 110.3 kg
[~2019-11-30 22:53] MED LIST: AMBI10TA PO; ASPI81TA26 PO; BACITAB PO; BACT800T5 PO; BRIL90TA PO; ESSETAB4 PO; FISH1000 PO; FLOM0.4C39 PO; FLON1SPR NARES; KEFL500C17 PO; METO25TA4 PO; NAPR-885 PO; NEUR300C PO; OMEP40CA97 PO; PERC5TAB12 PO; PERCOCET PO; PRAV40TA2 PO
[2019-11-30 22:54] VITALS: BP 160/78
--- NOTE | 2019-12-01 00:57 | REPVR ---
PROCEDURE INFORMATION: Exam: US Pelvis Limited, Male Exam date and time: 12/01/2019 12:25 AM Age: 74 years old Clinical indication: Retention of urine; Additional info: Urinary retention/catheter issue TECHNIQUE: Imaging protocol: Real-time pelvic ultrasound with image documentation. COMPARISON: No relevant prior studies available. FINDINGS: Bladder: Mckoy balloon catheter in the urinary bladder. The bladder is distended to approximately 327 mL. IMPRESSION: Mildly distended bladder with Mckoy balloon in place. Electronically signed by: Anthony Campbell On 12/01/2019 00:55:54 AM
[2019-12-01] MEDS ORDERED: CIPR-249 PO (18:20)
== END 2019-12-01 02:07 | disposition home or self-care (01) ==
LOC: M ED 22:53
DX: T83.091A Other mechanical complication of indwelling urethral catheter, initial encounter (principal); R33.9 Retention of urine, unspecified; R10.9 Unspecified abdominal pain; I10 Essential (primary) hypertension; E78.5 Hyperlipidemia, unspecified; N40.0 Benign prostatic hyperplasia without lower urinary tract symptoms; M54.5 Low back pain; Z79.02 Long term (current) use of antithrombotics/antiplatelets; Z79.899 Other long term (current) drug therapy

== ENCOUNTER 2019-12-01 15:41 | Emergency (ER) | payer MEDICARE, OTHER ==
[~2019-12-01] VITALS: Ht 182.9 cm; Wt 110.0 kg
[2019-12-01] MEDS ORDERED: MORPHINE 2 MG/ML 1ML VIAL (J2270) IV ONE ×2 (17:15→18:00)
[2019-12-01] MEDS ORDERED: ONDANSETRON 4MG/2ML VIAL (J2405) IV ONE (17:15)
[2019-12-01] MEDS ORDERED: NS 1,000 ML IV ONE (17:15)
[2019-12-01 17:32] LABS: BASO % 0.3 % (0.0-1.0); EOS # 0.1 10^3/uL (0.0-0.5); EOS % 1.3 % (0.0-3.0); HEMATOCRIT 42.4 % (42.0-52.0); HEMOGLOBIN 14.4 g/dl (13.5-17.5); LYMPH # 1.8 10^3/uL (1.5-5.0); LYMPH % 25.5 % (24.0-44.0); MEAN CORPUSCULAR HEMOGLOBIN 30.3 pg (27.0-33.0); MEAN CORPUSCULAR VOLUME 89.1 fl (80.0-96.0); MONO # 0.6 10^3/uL (0.0-0.8); MONO % 8.1 % (0.0-5.0); NEUTROPHILS # 4.4 10^3/uL (1.5-8.5); NEUTROPHILS % 64.4 % (36.0-66.0); PLATELET COUNT, AUTOMATED 171 10^3/uL (150-450); RED BLOOD COUNT 4.76 10^6/uL (4.30-6.10); WHITE BLOOD COUNT 6.9 10^3/uL (4.0-10.0)
[2019-12-01 17:49] LABS: CALCIUM LEVEL 8.7 MG/DL (8.8-10.2); CREATININE FOR GFR 1.25 MG/DL (0.70-1.30); GLOMERULAR FILTRATION RATE 59.8 (>42); POTASSIUM SERUM 3.8 MEQ/L (3.5-5.1)
[2019-12-01 18:10] LABS: BILIRUBIN, URINE MANUAL NEGATIVE (NEGATIVE); GLUCOSE, URINE (UA) MANUAL NEGATIVE (NEGATIVE); KETONE, URINE MANUAL NEGATIVE (NEGATIVE); UROBILINOGEN, URINE MANUAL NORMAL (NORMAL)
[2019-12-01 18:15] VITALS: BP 140/74
[2019-12-01 18:18] LABS: BACTERIA, URINE MOD AMOUNT; HYALINE CAST, URINE NONE SEEN /lpf (0-1); MUCUS, URINE SMALL AMOUNT (NEGATIVE); RBC, URINE TNTC /hpf (0-3); SQUAMOUS EPITHELIAL CELL URINE NONE SEEN /hpf (SMALL AMT)
--- NOTE | 2019-12-01 18:19 | SMCUROLCON ---
Urology Consultation General Date of Consultation 12/01/19 Reason For Consultation This patient is seen for General Medical Complaint. History of Present Illness This is a 74 y/o M w/ a PMH significant for CAD, COPD, HTN, HL, and bladder tumors s/p TURBT + MMC instillation on 11/27/19, presenting to the ER for catheter obstruction. The patient presented to the ER yesterday evening w/ similar complaints and was discharged home after his catheter started draining when it was irrigated. He notes that earlier today it stopped draining again. Attempts were made to irrigate the catheter by nursing in the ER but due to severe pain w/ irrigation, we were consulted. The catheter has not drained anything since he has been in the ER. Past Medical History Medical History see HPI Surgical Hstory TURBT + MMC instillation on 11/27/19 cardiac stents appendectomy cholecystectomy Allergies Allergies: Coded Allergies: No Known Allergies (Unverified , 03/30/19) Review of Systems Constitutional: Denies: Fever, Chills, Sweats, Weakness, Malaise Skin: Denies: Rash, Lesions, Breakdown, Nail Changes Pulmonary: Denies: Dyspnea Cardiovascular: Denies Chest Pain, Denies Palpitations Gastrointestinal: Reports: Abdominal Pain (suprapubic pain); Denies: Nausea, Vomiting Genitourinary: Reports: Hematuria, Retention Neurological: Denies: Weakness, Numbness, Incoordination, Change in Speech Physical Examination General Exam: Alert, Mild Distress Chest Exam: Normal air movement Heart Exam: Rate Normal Abdomen Exam: Soft, Tenderness (suprapubic) Male Exam mild penoscrotal edema; 20Fr catheter in place w/ nothing draining into tubing Skin Exam: Nl turgor and temperature Neuro Exam: Normal Speech Psych Exam: Mental status NL, Mood NL Vital Signs/I&O Vital Signs Date Time Temp Pulse Resp B/P (MAP) Pulse Ox O2 Delivery O2 Flow Rate FiO2 12/01/19 17:52 20 97 Room Air 12/01/19 16:13 12/01/19 15:42 97.3 92 Laboratory Data 24H Labs Laboratory Tests 2 12/01/19 17:17: Immature Granulocyte % (Auto) 0.4, Neutrophils (%) (Auto) 64.4, Lymphocytes (%) (Auto) 25.5, Monocytes (%) (Auto) 8.1H, Eosinophils (%) (Auto) 1.3, Basophils (%) (Auto) 0.3, Neutrophils # (Auto) 4.4, Lymphocytes # (Auto) 1.8, Monocytes # (Auto) 0.6, Eosinophils # (Auto) 0.1, Basophils # (Auto) 0.0, Nucleated Red Blood Cells % (auto) 0.0, Anion Gap 8, Glomerular Filtration Rate 59.8, Calcium Level 8.7L CBC/BMP Laboratory Tests 12/01/19 17:17 Assessment This is a 74 y/o M who is POD4 s/p TURBT + MMC instillation at the [place], the [facility] g w/ catheter obstruction. After suctioning out urine and clots/tissue from the bladder, the catheter then drained relatively easily. After allowing the catheter to drain, I then irrigated the bladder w/ a total of 200-300cc of normal saline and removed a moderate amount of clots/tissue. Once done the catheter was draining clear urine. Plan - ok to discharge patient home - would recommend putting the patient on a few days of abx given the amount of bladder instrumentation over the last 2 days - patient may then f/u w/ his urologist for catheter removal as planned BALTAZAR RICO MD Dec 01, 2019 18:19
[2019-12-01] MEDS ORDERED: CIPR-249 PO (18:20)
[2019-12-01] MEDS ORDERED: CIPROFLOXACIN 500 MG TAB PO ONE (18:30)
== END 2019-12-01 18:48 | disposition home or self-care (01) ==
LOC: M ED 15:41
DX: T83.091A Other mechanical complication of indwelling urethral catheter, initial encounter (principal); R33.9 Retention of urine, unspecified; R10.9 Unspecified abdominal pain; R31.9 Hematuria, unspecified; I11.0 Hypertensive heart disease with heart failure; E78.5 Hyperlipidemia, unspecified; N40.0 Benign prostatic hyperplasia without lower urinary tract symptoms; M54.5 Low back pain; F17.210 Nicotine dependence, cigarettes, uncomplicated; Z79.82 Long term (current) use of aspirin; Z79.899 Other long term (current) drug therapy
CPT/HCPCS: 76857; 80048; 81000; 81015; 85025; 87086; 96361; 96374; 96375; 96376; 99282; 99284; J2270; J2405

== ENCOUNTER 2020-01-24 12:53 | Emergency (ER) | payer OTHER, MEDICARE ==
[~2020-01-24] VITALS: Ht 182.9 cm; Wt 104.5 kg
[~2020-01-24 12:53] MED LIST changes: +CIPR-249 PO
[2020-01-24] MEDS ORDERED: NS 1,000 ML IV SCH (13:08)
[2020-01-24] MEDS ORDERED: ONDANSETRON 4MG/2ML VIAL (J2405) IV ONE (13:15)
[2020-01-24] MEDS ORDERED: MORPHINE 2 MG/ML 1ML VIAL (J2270) IV ONE (13:15)
[2020-01-24 13:33] LABS: BASO % 0.5 % (0.0-1.0); EOS # 0.2 10^3/uL (0.0-0.5); EOS % 3.3 % (0.0-3.0); HEMATOCRIT 33.8 % (42.0-52.0); LYMPH % 15.5 % (24.0-44.0); MEAN CORPUSCULAR HEMOGLOBIN 30.3 pg (27.0-33.0); MEAN CORPUSCULAR HGB CONC 32.5 g/dl (32.0-36.5); MEAN CORPUSCULAR VOLUME 93.1 fl (80.0-96.0); MONO # 0.4 10^3/uL (0.0-0.8); MONO % 6.5 % (0.0-5.0); NEUTROPHILS # 4.6 10^3/uL (1.5-8.5); NEUTROPHILS % 72.9 % (36.0-66.0); PLATELET COUNT, AUTOMATED 303 10^3/uL (150-450); RED BLOOD COUNT 3.63 10^6/uL (4.30-6.10); WHITE BLOOD COUNT 6.3 10^3/uL (4.0-10.0)
[2020-01-24 13:46] LABS: INR 1.22; PROTHROMBIN TIME 15.2 SECONDS (11.8-14.0)
[2020-01-24 14:09] LABS: ALBUMIN 2.6 GM/DL (3.2-5.2); ALT/SGPT 31 U/L (12-78); BILIRUBIN,DIRECT < 0.1 MG/DL (0.0-0.2); BILIRUBIN,TOTAL 0.5 MG/DL (0.2-1.0); BLOOD UREA NITROGEN 12 MG/DL (7-18); CALCIUM LEVEL 8.5 MG/DL (8.8-10.2); CARBON DIOXIDE LEVEL 28 MEQ/L (21-32); CHLORIDE LEVEL 107 MEQ/L (98-107); CREATININE FOR GFR 1.32 MG/DL (0.70-1.30); GLOMERULAR FILTRATION RATE 56.1 (>42); GLUCOSE, FASTING 90 MG/DL (70-100); SODIUM LEVEL 139 MEQ/L (136-145); TOTAL PROTEIN 5.7 GM/DL (6.4-8.2)
[2020-01-24] MEDS ORDERED: ISOVUE-370 76% 100ML VIAL (Q9967) As Ordered ONE (14:14)
[2020-01-24] MEDS ORDERED: MORPHINE 4 MG/ML 1ML VIAL/SYRINGE (J2270) IV ONE (15:00)
[2020-01-24 15:36] VITALS: BP 127/58
--- NOTE | 2020-01-24 16:04 | REP ---
HISTORY pain. COMPARISON: There are prior exams, but I do not have them for comparison. They are at an outside institution. Without the prior exams, it is very difficult to determine whether or not the findings seen today represent acute or chronic changes. CONTRAST: 100 mL [id number] for comparison is 01/03/2007. There are chronic lung base changes seen with fibrotic change, bronchiectasis, and dependent subsegmental atelectatic changes. The patient is status post cholecystectomy since the last exam. There are no enhancing hepatic lesions. There is a small amount of ascites. There are multiple renal cysts that have increased in size from the prior exam. There are bilateral renal stents which are seen entering from the right lower quadrant of the abdomen externally and passing into the kidneys. Without priors for comparison, I cannot say whether or not these have changed in position. There is free fluid in the abdomen and pelvis. There are surgical clips in the right lower quadrant. There is on evidence of intestinal obstruction. There is a right lower quadrant fluid collection of uncertain etiology. The pancreas and adrenal glands are unremarkable. The spleen is unremarkable. There is fluid in the left inguinal canal. Bone window technique throughout the exam shows on lytic or blastic osseous lesions. IMPRESSION: 1. Postoperative changes as described above. 2. Renal cysts. 3. Small amount of free fluid as described above. 4. Comparison to recent priors is paramount! 5. Other findings as described above. Electronically Signed by Jamie Gamez DO 01/24/2020 04:08 P
[2020-01-24] MEDS ORDERED: ULTR50TA8 PO (16:20)
[2020-01-26] MEDS ORDERED: DOXY100C37 PO (08:34)
== END 2020-01-24 16:58 | disposition home or self-care (01) ==
LOC: EEVIPCON 12:53 → EDBD 12:53 → M ED 12:53
DX: S76.212A Strain of adductor muscle, fascia and tendon of left thigh, initial encounter (principal); X58.XXXA Exposure to other specified factors, initial encounter; Y92.9 Unspecified place or not applicable; Y93.9 Activity, unspecified; Y99.9 Unspecified external cause status; I10 Essential (primary) hypertension; E78.5 Hyperlipidemia, unspecified; N40.0 Benign prostatic hyperplasia without lower urinary tract symptoms; Z87.448 Personal history of other diseases of urinary system; N28.1 Cyst of kidney, acquired; Z96.0 Presence of urogenital implants; Z79.82 Long term (current) use of aspirin; Z79.899 Other long term (current) drug therapy
CPT/HCPCS: 74177; 80048; 80076; 81001; 85025; 85610; 87088; 87186; 96361; 96374; 96375; 96376; 99284; J2270; J2405; Q9967

== ENCOUNTER 2024-02-04 11:15 | Emergency (ER) | payer OTHER, MEDICARE ==
[~2024-02-04] VITALS: Ht 182.9 cm; Wt 102.3 kg
[~2024-02-04 11:15] MED LIST changes: +DOXY-443 PO; +OMEP40CA4 PO; -OMEP40CA97 PO; +ULTR50TA8 PO
[2024-02-04] MEDS: ACETAMINOPHEN 500 MG TAB PO ONE (13:36)
[2024-02-04] MEDS: traMADol 50 MG TAB PO ONE ×2 (13:36→15:47)
[2024-02-04] MEDS: LIDOCAINE 5% (LIDODERM) PATCH TD ONE (13:36)
[2024-02-04] MEDS ORDERED: TRAM50TA2 PO (15:36)
[2024-02-04 15:37] VITALS: BP 143/60; TEMP 97.7; O2SAT 98
[2024-02-04] MEDS ORDERED: ANEC4CRE3 TOP (15:41)
== END 2024-02-04 15:51 | disposition home or self-care (01) ==
LOC: M ED 11:15
DX: S32.040A Wedge compression fracture of fourth lumbar vertebra, initial encounter for closed fracture (principal); M47.896 Other spondylosis, lumbar region; M48.061 Spinal stenosis, lumbar region without neurogenic claudication; I25.2 Old myocardial infarction; I10 Essential (primary) hypertension; E78.5 Hyperlipidemia, unspecified; N40.0 Benign prostatic hyperplasia without lower urinary tract symptoms; Z79.82 Long term (current) use of aspirin; Z79.811 Long term (current) use of aromatase inhibitors; Z79.891 Long term (current) use of opiate analgesic; Z79.83 Long term (current) use of bisphosphonates; Z79.899 Other long term (current) drug therapy; Y92.9 Unspecified place or not applicable; Y93.9 Activity, unspecified; Y99.9 Unspecified external cause status

== ENCOUNTER → 2024-05-21 | Outpatient (CLI) | payer MEDICARE, OTHER ==
[~2024-05-21] MED LIST changes: +ANEC4CRE3 TOP; +DOXY-323 PO; -DOXY-443 PO; +TRAM50TA2 PO
== END ==
LOC: M PAIN 13:00
PROVIDERS: ATTEND Nurse Practitioner Family
DX: M54.16 Radiculopathy, lumbar region (principal); G89.29 Other chronic pain; M19.90 Unspecified osteoarthritis, unspecified site; R56.9 Unspecified convulsions; G25.0 Essential tremor; Z87.891 Personal history of nicotine dependence; Z79.82 Long term (current) use of aspirin; Z79.899 Other long term (current) drug therapy

== ENCOUNTER → 2024-07-12 | Outpatient (CLI) | payer MEDICARE, OTHER ==
[~2024-07-12] MED LIST changes: -DOXY-323 PO; +DOXY-441 PO
== END ==
LOC: M PAIN 17:30
PROVIDERS: ATTEND Nurse Practitioner Family
DX: M54.16 Radiculopathy, lumbar region (principal); G89.29 Other chronic pain; M19.90 Unspecified osteoarthritis, unspecified site; G25.0 Essential tremor; K21.9 Gastro-esophageal reflux disease without esophagitis; E78.5 Hyperlipidemia, unspecified; I25.10 Atherosclerotic heart disease of native coronary artery without angina pectoris; M47.816 Spondylosis without myelopathy or radiculopathy, lumbar region; R56.9 Unspecified convulsions; I25.2 Old myocardial infarction; Z87.891 Personal history of nicotine dependence; Z79.82 Long term (current) use of aspirin; Z79.899 Other long term (current) drug therapy; Z88.8 Allergy status to other drugs, medicaments and biological substances

== ENCOUNTER → 2025-06-03 | Outpatient (REF) | payer OTHER ==
[~2025-06-03] MED LIST changes: -AMBI10TA PO; -FLOM0.4C39 PO; -PRAV40TA2 PO; +PRAV40TA85 PO; +TAMS-18 PO; +ZOLP-533 PO
== END ==
LOC: M LAB REF 17:04
PROVIDERS: ATTEND Internal Medicine Nephrology
DX: N39.0 Urinary tract infection, site not specified (principal)